=== PATIENT | male | born 1965 | race Caucasian/White ===

== ENCOUNTER 2016-05-23 11:28 | Inpatient (IN) | payer MEDICAID ==
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
[2016-05-23] MEDS ORDERED: NS 1,000 ML IV ONE ×2 (13:35)
[2016-05-23 13:46] LABS: % IMMATURE GRANULYOCYTES 0.8 % (0.0-1.1); ABSOLUTE IMMATURE GRANULOCYTES 0.07 10^3/uL (0.00-0.10); ADD DIFF? NO; ADD MORPH? NO; ADD SCAN? NO; ATYPICAL LYMPHOCYTE FLAG 0 (0-99); FRAGMENT RBC FLAG 0 (0-99); HEMOGLOBIN 14.9 g/dL (13.7-17.5); LEFT SHIFT FLG 0 (0-99); LIPEMIA HEMOLYSIS FLAG 90 (0-99); MEAN CELL HEMOGLOBIN 34.4 pg (27.9-34.1); MEAN CELL HEMOGLOBIN CONCENTR. 35.5 g/dL (32.4-36.7); MEAN PLATELET VOLUME 10.2 fL (8.7-11.7); PLATELET CLUMPS FLAG 0 (0-99); PLATELET COUNT 341 10^3/uL (150-400); RED BLOOD CELL COUNT 4.33 10^6/uL (4.40-6.38); RED CELL DISTRIBUTION WIDTH 12.9 % (11.5-15.2)
[2016-05-23 14:01] LABS: ANION GAP 17 mEq/L (8-16); CALCIUM 9.8 mg/dL (8.5-10.4); CARBON DIOXIDE 22 mEq/l (22-31); CHLORIDE 94 mEq/L (97-110); CREATININE 4.1 mg/dL (0.7-1.3); GLOMERULAR FILTRATION RATE 15; GLUCOSE 147 mg/dL (70-100); POTASSIUM 4.4 mEq/L (3.5-5.2); SODIUM 133 mEq/L (134-144)
--- NOTE | 2016-05-23 14:13 | CT ---
CT Brain (Without Contrast) May 23, 2016, 1348 hours History: Dizziness and confusion. Comparison: None relevant. Technique: Axial computed tomographic images of the brain without contrast. Dose reduction techniques were utilized. Findings: Ventricles, cisterns, and sulci are widened consistent with atrophy. No hydrocephalus, mid line shift/herniation, or epidural/subdural hematomas. No acute intraparenchymal hemorrhage or mass e ffect. Cerebrovascular atherosclerosis. Hypodensities in the white matter of bilateral cerebral hemis pheres. Bone windows demonstrate no displaced fractures. Paranasal sinuses and mastoid air cells are clear. Impressions 1. Moderate atrophy. 2. No acute hemorrhage, hydrocephalus, or mass effect. 3. Cerebrovascular atherosclerosis. 4. No definite acute infarct. 5. Moderate microvascular ischemic disease. Critical results relayed by Dr. Craft to Dr. Live May 23, 2016, 1410 hours.
[2016-05-23] MEDS ORDERED: ZOLPIDEM TARTRATE 5 MG TAB PO PRN (15:41)
[2016-05-23] MEDS ORDERED: ACETAMINOPHEN 325 MG TAB PO PRN (15:41)
[2016-05-23] MEDS ORDERED: ONDANSETRON 4 MG/2 ML VIAL IVP PRN (15:41)
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
[2016-05-23] MEDS: NS 1,000 ML IV SCH (17:23)
[2016-05-23] MEDS ORDERED: GABAPENTIN 300 MG CAP PO SCH (21:00)
[2016-05-23] MEDS: traMADol 50 MG TAB PO SCH (21:00)
[2016-05-23] MEDS: HEPARIN 5,000 UNIT/0.5 ML SYR SC SCH (21:01)
[2016-05-24] MEDS: HEPARIN 5,000 UNIT/0.5 ML SYR SC SCH ×3 (05:06→20:13)
[2016-05-24] MEDS: NS 1,000 ML IV SCH ×2 (05:40→14:50)
[2016-05-24 06:03] LABS: % IMMATURE GRANULYOCYTES 1.2 % (0.0-1.1); ABSOLUTE IMMATURE GRANULOCYTES 0.07 10^3/uL (0.00-0.10); ADD DIFF? NO; ADD MORPH? NO; ADD SCAN? NO; ATYPICAL LYMPHOCYTE FLAG 0 (0-99); FRAGMENT RBC FLAG 0 (0-99); HEMATOCRIT 34.7 % (40.0-51.0); LEFT SHIFT FLG 0 (0-99); LIPEMIA HEMOLYSIS FLAG 90 (0-99); MEAN CELL HEMOGLOBIN 34.2 pg (27.9-34.1); MEAN CELL HEMOGLOBIN CONCENTR. 34.6 g/dL (32.4-36.7); MEAN CELL VOLUME 98.9 fL (81.5-99.8); MEAN PLATELET VOLUME 10.5 fL (8.7-11.7); PLATELET CLUMPS FLAG 10 (0-99); PLATELET COUNT 218 10^3/uL (150-400); RED BLOOD CELL COUNT 3.51 10^6/uL (4.40-6.38)
[2016-05-24 06:09] LABS: ANION GAP 11 mEq/L (8-16); CARBON DIOXIDE 21 mEq/l (22-31); CHLORIDE 104 mEq/L (97-110); CREATININE 4.1 mg/dL (0.7-1.3); GLOMERULAR FILTRATION RATE 15; GLUCOSE 99 mg/dL (70-100); POTASSIUM 4.4 mEq/L (3.5-5.2); SODIUM 136 mEq/L (134-144)
[2016-05-24] MEDS ORDERED: ENOXAPARIN 40 MG/0.4 ML SYR SC SCH (09:00)
[2016-05-24] MEDS ORDERED: PROTOCOL MAGNESIUM 1 DOSE IV PRN (10:01)
[2016-05-24] MEDS ORDERED: MAGNESIUM SULF 2 GM/WATER 50 ML IV ONE (10:01)
[2016-05-24 10:27] LABS: COLOR PALE YELLOW; LEUKOCYTE ESTERASE,URINE NEGATIVE (NEGATIVE); NITRITE,URINE NEGATIVE (NEGATIVE)
[2016-05-24 10:31] LABS: MUCUS TRACE /lpf (NONE-1+)
--- NOTE | 2016-05-24 10:55 | US ---
Complete Retroperitoneal Ultrasound History: Acute renal failure. Comparison: None available. Findings: The right kidney measures 12.3 x 6.4 x 6.9 cm and the left kidney measures 12.6 x 5.4 x 7.2 cm. The kidneys have normal cortical thickness and contour without pelvicaliectasis. Renal echogenic ity is upper normal. The visible liver is diffusely echogenic. The bladder is normal. Bilateral ureteral jets are present. Prevoid bladder volume is 174 mL. Postv oid imaging was not performed. Impression: 1. Normal renal ultrasound. 2. Echogenic liver suggesting fatty infiltration.
--- NOTE | 2016-05-24 10:57 | PDGENHP ---
History and Physical - Chief Complaint GONZÁLEZ - History of Present Illness Mr. Culver is a 51 yo M with h/o DM and HTN who was admitted yesterday for dizziness and weakness and found to have Cr of 4.1. In mid March 2016, his Cr was 0.7 and prior to that had been noted to be 0.6-0.8 consistently. Pt has never before had a kidney problem. He states that he has undergone several medication changes lately, had lisinopril increased about one month ago. Two weeks ago he came back from [place] and noted having signficant swelling in his feet, was started on Lasix 20mg po three times a week, which he has been taking for the past two weeks, last dose was Friday. He states that helped his swelling. He has been having problems with constipation that have been worse in the past one week. He notes that his SBP mostly runs 140s-180s all this month, which is not bad for him. He has been feeling dizzy and disoriented this past week, showed up for what he thought was an appointment yesterday but in fact did not have one, so he came to ER due to his confusion. CT head negative. He states he is still making urine, has not had any vomiting but has had poor po intake due to his constipation. History Information - Allergies/Home Medication List Allergies/Adverse Reactions: No Known Allergies Allergy (Unverified 02/13/13 18:15) Home Medications: Lisinopril [Zestril 20 mg (*)] 20 mg PO DAILY 10/06/13 [Last Taken 05/23/16] Gabapentin [Neurontin 300 MG (*)] 600 mg PO HS 04/10/16 [Last Taken 05/22/16] Nebivolol HCl [Bystolic 5 mg (*)] 5 mg PO DAILY 04/10/16 [Last Taken 05/23/16] Furosemide [Lasix 20 MG (*)] 20 mg PO MOWEFR 05/23/16 [Last Taken 05/22/16] Linagliptin [Tradjenta] 5 mg PO DAILY 05/23/16 [Last Taken 05/23/16] metFORMIN HCL [Glucophage 500 mg (*)] 500 mg PO DAILY 05/23/16 [Last Taken 05/23] traMADol [Ultram 50 mg (*)] 100 mg PO HS 05/23/16 [Last Taken 05/22/16] I have personally reviewed and updated: medical history Past Medical History: HTN. DM. Peripheral neuropathy - Surgical History Additional surgical history: N/A - Family History Additional family history: CAD, prostate cancer, brain cancer, leukemia - Social History Smoking Status: Never smoked Review of Systems ROS: 10pt was reviewed & negative except for what was stated in HPI & below Physical Exam Temp Pulse Resp BP Pulse Ox 36.4 C 82 18 145/96 H 96 05/24/16 08:00 05/24/16 08:00 05/24/16 08:00 05/24/16 08:00 05/24/16 08:00 O2 (L/minute) 0 Constitutional: no apparent distress, appears nourished, not in pain, obese Eyes: PERRL, anicteric sclera, EOMI Ears, Nose, Mouth, Throat: moist mucous membranes, no oral mucosal ulcers Cardiovascular: regular rate and rhythym, no murmur, rub, or gallop, No edema Peripheral Pulses: 2+: dorsalis-pedis (R), dorsalis-pedis (L) Respiratory: no respiratory distress, no rales or rhonchi, clear to auscultation Gastrointestinal: normoactive bowel sounds, soft, non-tender abdomen Skin: warm, No rash Musculoskeletal: full muscle strength, no joint effusions Neurologic: AAOx3, CN II-XII Intact, No asterixes Psychiatric: interacting appropriately, not encephalopathic Lab Data & Imaging Review 05/24/16 05:28 05/24/16 05:28 WBC 5.97 10^3/uL (3.80-9.50) 05/24/16 05:28 RBC 3.51 10^6/uL (4.40-6.38) L 05/24/16 05:28 Hgb 12.0 g/dL (13.7-17.5) L 05/24/16 05:28 POC Hgb 16.0 gm/dL (14.5-17.3) 05/23/16 13:26 Hct 34.7 % (40.0-51.0) L 05/24/16 05:28 POC Hct 47 % (42.8-50.6) 05/23/16 13:26 MCV 98.9 fL (81.5-99.8) 05/24/16 05:28 MCH 34.2 pg (27.9-34.1) H 05/24/16 05:28 MCHC 34.6 g/dL (32.4-36.7) 05/24/16 05:28 RDW 13.0 % (11.5-15.2) 05/24/16 05:28 Plt Count 218 10^3/uL (150-400) D 05/24/16 05:28 MPV 10.5 fL (8.7-11.7) 05/24/16 05:28 Neut % (Auto) 66.6 % (39.3-74.2) 05/24/16 05:28 Lymph % (Auto) 17.8 % (15.0-45.0) 05/24/16 05:28 [place] % (Auto) 11.1 % (4.5-13.0) 05/24/16 05:28 Eos % (Auto) 2.3 % (0.6-7.6) 05/24/16 05:28 Baso % (Auto) 1.0 % (0.3-1.7) 05/24/16 05:28 Nucleat RBC Rel Count 0.0 % (0.0-0.2) 05/24/16 05:28 Absolute Neuts (auto) 3.98 10^3/uL (1.70-6.50) 05/24/16 05:28 Absolute Lymphs (auto) 1.06 10^3/uL (1.00-3.00) 05/24/16 05:28 Absolute Monos (auto) 0.66 10^3/uL (0.30-0.80) 05/24/16 05:28 Absolute Eos (auto) 0.14 10^3/uL (0.03-0.40) 05/24/16 05:28 Absolute Basos (auto) 0.06 10^3/uL (0.02-0.10) 05/24/16 05:28 Absolute Nucleated RBC 0.00 10^3/uL (0-0.01) 05/24/16 05:28 Immature Gran % 1.2 % (0.0-1.1) H 05/24/16 05:28 Immature Gran # 0.07 10^3/uL (0.00-0.10) 05/24/16 05:28 POC Sodium 135 mEq/L (134-144) 05/23/16 13:26 Sodium 136 mEq/L (134-144) 05/24/16 05:28 POC Potassium 4.0 mEq/L (3.3-5.0) 05/23/16 13:26 Potassium 4.4 mEq/L (3.5-5.2) 05/24/16 05:28 POC Chloride 95 mEq/L (96-108) L 05/23/16 13:26 Chloride 104 mEq/L (97-110) D 05/24/16 05:28 Carbon Dioxide 21 mEq/l (22-31) L 05/24/16 05:28 Anion Gap 11 mEq/L (8-16) 05/24/16 05:28 POC BUN 32 mg/dL (7-23) H 05/23/16 13:26 BUN 31 mg/dL (7-23) H 05/24/16 05:28 Creatinine 4.1 mg/dL (0.7-1.3) H 05/24/16 05:28 POC Creatinine 4.2 mg/dL (0.8-1.5) H 05/23/16 13:26 Estimated GFR 15 05/24/16 05:28 Glucose 99 mg/dL (70-100) 05/24/16 05:28 POC Glucose 138 mg/dL (70-100) H 05/23/16 20:58 Calcium 8.0 mg/dL (8.5-10.4) L D 05/24/16 05:28 Magnesium 1.0 mg/dL (1.6-2.3) L 05/24/16 05:28 TSH 1.680 uIU/mL (0.465-4.680) 05/24/16 05:28 Urine Color PALE YELLOW 05/24/16 09:55 Urine Appearance CLEAR 05/24/16 09:55 Urine pH 5.0 (5.0-7.5) 05/24/16 09:55 Ur Specific [place] 1.004 (1.002-1.030) 05/24/16 09:55 Urine Protein NEGATIVE (NEGATIVE) 05/24/16 09:55 Urine Ketones NEGATIVE (NEGATIVE) 05/24/16 09:55 Urine Blood 1+ (NEGATIVE) H 05/24/16 09:55 Urine Nitrate NEGATIVE (NEGATIVE) 05/24/16 09:55 Urine Bilirubin NEGATIVE (NEGATIVE) 05/24/16 09:55 Urine Urobilinogen NEGATIVE EU (0.2-1.0) 05/24/16 09:55 Ur Leukocyte Esterase NEGATIVE (NEGATIVE) 05/24/16 09:55 Urine RBC 1-3 /hpf (0-3) 05/24/16 09:55 Urine WBC 1-3 /hpf (0-3) 05/24/16 09:55 Ur Epithelial Cells NONE SEEN /lpf (NONE-1+) 05/24/16 09:55 Urine Mucus TRACE /lpf (NONE-1+) 05/24/16 09:55 Urine Glucose 1+ (NEGATIVE) H 05/24/16 09:55 Assessment & Plan Assessment: Assessment/Plan: GONZÁLEZ: Pt with baseline Cr of 0.7, now up to 4.1, remains stable in the past 24 hours with fluids. Likely has prerenal injury vs ATN given his recent history with taking Lasix, higher dose lisinopril, poor po intake, and lower BP for him. - No emergent need for HD at this time. - Continue IVFs. - Continue to hold BP meds, including lisinopril and Lasix. - Agree with checking urine lytes, urine creatinine, and renal US. - Will continue to monitor renal parameters. - Will cut down dose of gabapentin to be dosed renally. - Avoid morphine, NSAIDs, contrast, aminoglycosides, ACEI/ARBs, and other nephrotoxins. Hypertension: pt normally runs high, around 140-180 systolic, currently running 100-120s. - Hold BP meds. - Continue IVFs. Hypomagnesemia: severe, Mag is 1.0. Could be from diuretic use. - Hold diuretics. - Agree with repleting. - Will check a 24 hr urine magnesium. Thank you for the interesting consult. Nephrology will continue to follow, please call if you have any additional questions or concerns.
--- NOTE | 2016-05-24 16:26 | HOSPPROG ---
Hospitalist Progress Note Assessment/Plan: Acute renal failure - No improvement overnight after IVF's, Cr still 4.1. FeNa 10.5, suggesting ATN. Normal renal u/s. -Cont to hold Lasix, Lisinopril, Metformin. -Continue gentle volume repletion. -Appreciate Nephrology input Hypomagnesemia - replace, follow, lyte protocol. Gait instability - PT/OT planned DVT PPLX - ANA Subjective: Pt feels better this afternoon. Dizziness improved. Had some tingling in his hands, also improved. No N/V. No fevers. Objective: Vital Signs Temp Pulse Resp BP Pulse Ox 36.4 C 81 18 131/93 H 95 05/24/16 15:11 05/24/16 15:11 05/24/16 15:11 05/24/16 15:11 05/24/16 15:11 Laboratory Results 05/24/16 05:28 05/24/16 05:28 05/23/16 05/24/16 05/25/16 05:59 05:59 05:59 Intake Total 2400 450 Output Total 475 400 Balance 1925 50 - Physical Exam Constitutional: no apparent distress Eyes: PERRL Ears, Nose, Mouth, Throat: moist mucous membranes Cardiovascular: regular rate and rhythym Respiratory: no respiratory distress Gastrointestinal: normoactive bowel sounds, soft, non-tender abdomen Skin: warm Neurologic: AAOx3 Psychiatric: interacting appropriately ICD10 Worksheet Patient Problems: Problems Problem Status Diagnosed Acute renal failure Acute Dizziness Acute
[2016-05-24] MEDS: POLYETHYLENE GLYCOL 3350 17 GM PKT PO PRN (16:32)
[2016-05-24] MEDS: GABAPENTIN 100 MG CAP PO SCH (20:12)
[2016-05-24] MEDS: traMADol 50 MG TAB PO SCH (20:12)
[2016-05-25 05:22] LABS: ANION GAP 13 mEq/L (8-16); CALCIUM 8.2 mg/dL (8.5-10.4); CARBON DIOXIDE 18 mEq/l (22-31); CHLORIDE 108 mEq/L (97-110); CREATININE 3.6 mg/dL (0.7-1.3); GLOMERULAR FILTRATION RATE 18; GLUCOSE 114 mg/dL (70-100); MAGNESIUM 1.3 mg/dL (1.6-2.3); POTASSIUM 4.1 mEq/L (3.5-5.2); SODIUM 139 mEq/L (134-144)
[2016-05-25] MEDS: HEPARIN 5,000 UNIT/0.5 ML SYR SC SCH ×3 (07:24→21:12)
--- NOTE | 2016-05-25 08:36 | SOAPPROG ---
SOAP Progress Note Assessment/Plan: Assessment: 1. GONZÁLEZ This appears to be hemodynamic. UA, US ok. Holding ACEI, continuing NS. Cr improving. 2. Hypomagnesemia I suspect this is due to poor po intake and loop diuretic. 24 hr urine won't be helpful in the midst of treating. Will replace Mg and hold collection for now. 3. Anorexia/Constipation Pt states he stopped eating because of issues of constipation. I suspect latter is a primary issue, although hypomagnesemia might be complicating. Will check KUB. Will treat based on findings. GI eval may be warranted. 4. Anemia Will check iron stores. 5. Prior history of edema None now. I am not sure of physiologic reasons for him to have edema. May need further investigation Plan: 05/25/16 08:32 Subjective: Appears anxious, feels obstipated Objective: Vital Signs Temp Pulse Resp BP Pulse Ox 36.7 C 89 12 114/80 94 05/25/16 04:00 05/25/16 04:00 05/25/16 04:00 05/25/16 04:00 05/25/16 04:00 Laboratory Results 05/24/16 05:28 05/25/16 04:55 05/24/16 05/25/16 05/26/16 05:59 05:59 05:59 Intake Total 2400 1750 Output Total 194 2975 Balance 1925 -1225 Physical Exam - Physical Exam General Appearance: no apparent distress, anxiety Respiratory: lungs clear Cardiac/Chest: regular rate, rhythm Extremities: normal inspection Neuro/Psych: oriented x 3 ICD10 Worksheet Patient Problems: Problems Problem Status Diagnosed Acute renal failure Acute Dizziness Acute
[2016-05-25] MEDS ORDERED: MAGNESIUM SULF 2 GM/WATER 50 ML IV ONE (08:37)
[2016-05-25 09:16] LABS: % SATURATION 30 % (20-55); TOTAL IRON BINDING CAPACITY 242 ug/dL (260-490)
--- NOTE | 2016-05-25 10:12 | DX ---
Single View Abdomen May 25, 2016 at 0944 Hours History: Abdominal distention. Constipation. Findings: Scattered gas and stool in the ascending colon. Scattered gas in the transverse and descend ing colon without evidence of constipation or fecal impaction. No small bowel distention. Lung bases are clear. Degenerative osteophytes in the lumbar spine. Impression: No evidence of bowel obstruction or constipation.
--- NOTE | 2016-05-25 11:37 | HOSPPROG ---
Hospitalist Progress Note Assessment/Plan: Acute renal failure - Some improvement today, Cr down to 3.6 to 4.1. FeNa 10.5 , suggesting possibly ATN. Normal renal u/s. -Cont to hold Lasix, Lisinopril, Metformin. -Continue gentle volume repletion. -Appreciate Nephrology input Hypomagnesemia - replace, follow, lyte protocol. Metabolic acidosis in setting of ARF Constipation - improved with bowel regimen, KUB pending Edema - Has been taking Lasix for this, which is held in setting of ARF. No proteinuria on ua. Echo done recently at [facility]. Query venous stasis. Gait instability - PT/OT planned DVT PPLX - ANA Full code Dispo - cont inpt Objective: Vital Signs Temp Pulse Resp BP Pulse Ox 36.5 C 92 18 110/86 H 96 05/25/16 11:24 05/25/16 11:24 05/25/16 11:24 05/25/16 11:24 05/25/16 11:24 Laboratory Results 05/24/16 05:28 05/25/16 04:55 05/24/16 05/25/16 05/26/16 05:59 05:59 05:59 Intake Total 2400 1750 360 Output Total 097 3437 700 Balance 9075 -8245 -471 ICD10 Worksheet Patient Problems: Problems Problem Status Diagnosed Acute renal failure Acute Dizziness Acute
[2016-05-25] MEDS: DOCUSATE SODIUM 100 MG CAP PO SCH ×2 (12:37→22:08)
[2016-05-25] MEDS: SENNOSIDES 1 TAB PO SCH ×2 (12:37→22:08)
[2016-05-25] MEDS: NS 1,000 ML IV SCH (15:01)
[2016-05-25] MEDS: traMADol 50 MG TAB PO SCH (21:10)
[2016-05-25] MEDS: GABAPENTIN 100 MG CAP PO SCH (21:11)
[2016-05-26 00:43] LABS: RANDOM URINE MAGNESIUM 7.9 mg/dL
[2016-05-26] MEDS: SENNOSIDES 1 TAB PO SCH ×3 (01:06→21:14)
[2016-05-26] MEDS: DOCUSATE SODIUM 100 MG CAP PO SCH ×3 (01:06→21:14)
[2016-05-26] MEDS: NS 1,000 ML IV SCH ×2 (04:25→21:20)
[2016-05-26 05:36] LABS: ALBUMIN 3.3 g/dL (3.5-5.0); ANION GAP 14 mEq/L (8-16); CALCIUM 8.3 mg/dL (8.5-10.4); CARBON DIOXIDE 19 mEq/l (22-31); CHLORIDE 109 mEq/L (97-110); CREATININE 2.1 mg/dL (0.7-1.3); GLOMERULAR FILTRATION RATE 33; GLUCOSE 110 mg/dL (70-100); MAGNESIUM 1.2 mg/dL (1.6-2.3); POTASSIUM 3.8 mEq/L (3.5-5.2); SODIUM 142 mEq/L (134-144)
[2016-05-26] MEDS: HEPARIN 5,000 UNIT/0.5 ML SYR SC SCH ×3 (05:38→21:14)
[2016-05-26] MEDS ORDERED: MAGNESIUM SULF 2 GM/WATER 50 ML IV ONE ×2 (08:38→10:21)
[2016-05-26] MEDS: NEBIVOLOL HCL 5 MG TAB PO SCH (10:45)
--- NOTE | 2016-05-26 10:55 | SOAPPROG ---
SOAP Progress Note Assessment/Plan: Assessment: 1. GONZÁLEZ Hemodynamic in nature. Improving. 2. Hypomagnesemia Likely due to poor intake and loop diuretic. Replacing, coming up slowly. Replace again today, and send home on oral Mag with close follow up. 3. Anorexia/Constipation Pt states he stopped eating because of issues of constipation. Abd film really doesn't support this. He has anemia but this is not iron deficiency. He has had weight loss. He needs Abd/Pelvic CT when Cr better. Subjective: Wants to go home Objective: Vital Signs Temp Pulse Resp BP Pulse Ox 36.6 C 95 16 146/97 H 93 05/26/16 08:00 05/26/16 08:00 05/26/16 08:00 05/26/16 08:56 05/26/16 08:00 Laboratory Results 05/24/16 05:28 05/26/16 04:55 05/25/16 05/26/16 05/27/16 05:59 05:59 05:59 Intake Total 1750 1060 Output Total 2975 1999 Balance -1225 -940 Physical Exam - Physical Exam General Appearance: no apparent distress Respiratory: normal breath sounds Cardiac/Chest: regular rate, rhythm Abdomen: soft Extremities: normal inspection Neuro/Psych: oriented x 3, depressed affect ICD10 Worksheet Patient Problems: Problems Problem Status Diagnosed Acute renal failure Acute Dizziness Acute
--- NOTE | 2016-05-26 14:59 | US ---
Bilateral Lower Extremity Venous Duplex Doppler Studies Clinical Indications: 51-year-old male with edema of unclear etiology. Rule out DVT. Technique: A high-frequency transducer was used for compression imaging and Doppler study of the alessandra p veins of both legs from the upper calves to the groins. Pulsed Doppler and color Doppler were utili zed, along with various maneuvers to assess flow in the deep veins. Comparison Study: Right lower extremity venous Doppler ultrasound, dated December 06, 2015, reported as n egative. Findings: Right Leg: The deep veins of the groin, thigh, knee, and upper calf are well-displayed, and are norm ally compressible. Doppler flow patterns are unremarkable. There is no evidence of deep venous thro mbosis. The greater saphenous vein is patent, and the popliteal fossa is unremarkable. There is some subcutaneous edema present. Left Leg: The deep veins of the groin, thigh, knee, and upper calf are well-displayed, and are nithin lly compressible. Doppler flow patterns are unremarkable. There is no evidence of deep venous throm bosis. There is normal compression of the greater saphenous vein, without superficial thrombosis. The popliteal fossa is unremarkable. There is some subcutaneous edema present. Impression: Normal bilateral lower extremity venous Doppler studies.
--- NOTE | 2016-05-26 16:01 | HOSPPROG ---
Hospitalist Progress Note Assessment/Plan: * ARF - baseline creatinine normal -continue IVF, holding lasix, lisinopril, metformin * Hypomag -replete -discharge with PO mag * Edema -US negative for DVT * Abd pain with unintentional weight loss -CT a/p when creatinine improved -UTD on colonoscopy (3 years ago - polyps) * DM II -Januvia -holding metformin Subjective: No new complaints. Objective: Vital Signs Temp Pulse Resp BP Pulse Ox 36.6 C 92 16 142/108 H 98 05/26/16 12:00 05/26/16 12:00 05/26/16 12:00 05/26/16 12:00 05/26/16 12:00 Laboratory Results 05/24/16 05:28 05/26/16 04:55 05/25/16 05/26/16 05/27/16 05:59 05:59 05:59 Intake Total 1750 1060 Output Total 2975 2000 Balance -1225 -940 d/w Dr. Jaimes - best to keep as inpatient. Poor PO intake due to abd complaints - still don't know what is going on here US bilateral legs - no DVT - Physical Exam Constitutional: no apparent distress, appears nourished, not in pain Cardiovascular: regular rate and rhythym, no murmur, rub, or gallop, edema (1+) Respiratory: no respiratory distress, no rales or rhonchi, clear to auscultation Gastrointestinal: normoactive bowel sounds, soft, non-tender abdomen, no palpable masses Skin: no rashes or abrasions, no fluctuance, no induration Neurologic: AAOx3, sensation intact bilaterally Psychiatric: interacting appropriately, not anxious, not encephalopathic, thought process linear ICD10 Worksheet Patient Problems: Problems Problem Status Diagnosed Acute renal failure Acute Dizziness Acute
[2016-05-26] MEDS: GABAPENTIN 100 MG CAP PO SCH (21:14)
[2016-05-26] MEDS: traMADol 50 MG TAB PO SCH (21:15)
[2016-05-27 05:06] VITALS: RESP 18
[2016-05-27 05:32] LABS: % IMMATURE GRANULYOCYTES 0.5 % (0.0-1.1); ABSOLUTE IMMATURE GRANULOCYTES 0.04 10^3/uL (0.00-0.10); ADD DIFF? NO; ADD MORPH? NO; ADD SCAN? NO; ATYPICAL LYMPHOCYTE FLAG 0 (0-99); FRAGMENT RBC FLAG 0 (0-99); HEMATOCRIT 33.4 % (40.0-51.0); HEMOGLOBIN 11.8 g/dL (13.7-17.5); LEFT SHIFT FLG 0 (0-99); LIPEMIA HEMOLYSIS FLAG 90 (0-99); MEAN CELL HEMOGLOBIN 34.2 pg (27.9-34.1); MEAN CELL HEMOGLOBIN CONCENTR. 35.3 g/dL (32.4-36.7); MEAN CELL VOLUME 96.8 fL (81.5-99.8); PLATELET CLUMPS FLAG 0 (0-99); PLATELET COUNT 214 10^3/uL (150-400); RED BLOOD CELL COUNT 3.45 10^6/uL (4.40-6.38)
[2016-05-27 05:43] LABS: ALANINE AMINOTRANSFERASE 48 IU/L (21-72); ALBUMIN 3.3 g/dL (3.5-5.0); ALKALINE PHOSPHATASE 74 IU/L (38-126); ANION GAP 13 mEq/L (8-16); ASPARTATE AMINOTRANSFERASE 36 IU/L (17-59); BILIRUBIN,TOTAL 1.2 mg/dL (0.1-1.4); BILIRUBIN-CONJUGATED 0.5 mg/dL (0.0-0.5); BILIRUBIN-UNCONJUGATED 0.7 mg/dL (0.0-1.1); CALCIUM 8.3 mg/dL (8.5-10.4); CARBON DIOXIDE 21 mEq/l (22-31); CHLORIDE 108 mEq/L (97-110); CREATININE 1.3 mg/dL (0.7-1.3); GLOMERULAR FILTRATION RATE 58; GLUCOSE 121 mg/dL (70-100); MAGNESIUM 1.3 mg/dL (1.6-2.3); POTASSIUM 3.7 mEq/L (3.5-5.2); SODIUM 142 mEq/L (134-144); TOTAL PROTEIN 5.7 g/dL (6.3-8.2)
[2016-05-27] MEDS: HEPARIN 5,000 UNIT/0.5 ML SYR SC SCH ×2 (05:46→14:48)
[2016-05-27] MEDS: POLYETHYLENE GLYCOL 3350 17 GM PKT PO PRN (07:46)
[2016-05-27] MEDS: NEBIVOLOL HCL 5 MG TAB PO SCH (07:47)
[2016-05-27] MEDS: SENNOSIDES 1 TAB PO SCH (07:48)
[2016-05-27] MEDS: DOCUSATE SODIUM 100 MG CAP PO SCH (07:48)
[2016-05-27] MEDS ORDERED: MAGNESIUM CL 64 MG TAB.SR PO SCH (09:30)
[2016-05-27] MEDS ORDERED: MAGNESIUM SULF 2 GM/WATER 50 ML IV ONE (10:18)
--- NOTE | 2016-05-27 10:21 | SOAPPROG ---
SOAP Progress Note Assessment/Plan: Assessment: 1. GONZÁLEZ Hemodynamic in nature. Improved. 2. Hypomagnesemia Give additional dose today. 3. Anorexia/Constipation Pt has anemia, change in bowel habits, LE edema. At this point, agree with imaging. He should tolerate contrast. Will give some additional IVF around the time of his study. 4. HTN Would wait and treat further as outpatient. Would use CCB along with BB. His PCP can adjust this. 05/27/16 10:18 Subjective: Doing ok Objective: Vital Signs Temp Pulse Resp BP Pulse Ox 36.3 C 93 18 141/107 H 95 05/27/16 07:40 05/27/16 07:40 05/27/16 07:40 05/27/16 07:40 05/27/16 07:40 Laboratory Results 05/27/16 05:03 05/27/16 05:03 05/26/16 05/27/16 05/28/16 05:59 05:59 05:59 Intake Total 1060 950 Output Total 2000 400 Balance -940 550 Physical Exam - Physical Exam General Appearance: no apparent distress Respiratory: lungs clear Cardiac/Chest: regular rate, rhythm Extremities: pedal edema Neuro/Psych: oriented x 3 ICD10 Worksheet Patient Problems: Problems Problem Status Diagnosed Acute renal failure Acute Dizziness Acute
[2016-05-27] MEDS ORDERED: IOPAMIDOL (ISOVUE-300) 100 ML BTL IV ONE (10:25)
[2016-05-27] MEDS ORDERED: NS 1,000 ML IV SCH (10:30)
--- NOTE | 2016-05-27 11:42 | CT ---
CT Abdomen and Pelvis With IV Contrast History: 40-pound weight loss. Poor p.o. intake. Diabetes. Technique: 5 mm helical images were obtained of the abdomen and pelvis from the level of the diaphrag m through the symphysis pubis. This was done post intravenous contrast with 75 mL Isovue 300 contrast . Multiplanar reformation was performed. Radiation dose reduction technique was utilized. Findings: Abdomen: There is decreased attenuation of the liver but no focal liver lesion. There appears to be d ebris and gallstones within the gallbladder. No evidence for intrahepatic or extrahepatic biliary minal renay dilatation. There is a 12 mm oval density in the lumen of the duodenum just below the ampulla. No evidence for small bowel obstruction. Spleen is unremarkable. Both adrenal glands are normal in size and appearance. Both kidneys enhance normally without evidence for mass or hydronephrosis. No eviden ce for aneurysmal dilatation of the abdominal aorta. Pelvis: No evidence for diverticulitis. No significant free fluid in the pelvis. No evidence for blad monico calculus. Degenerative change is seen in the lumbar spine. Degenerative change is also seen in lydia th hips. Impression: 1. Debris and cholelithiasis in the gallbladder. No evidence for intrahepatic or extrahepatic biliary ductal dilatation or dilatation of the common bile duct. Just below the ampulla, there is a 12 mm ov al density in the lumen of the duodenum which could represent a stone or radiopaque pill. 2. Fatty infiltration of the liver. 3. Degenerative change lumbar spine.
[2016-05-27 12:00] VITALS: BP 133/95; PULSE 88; TEMP 97.9; O2SAT 97
[2016-05-27] MEDS ORDERED: LORazepam 0.5 MG TAB PO PRN (13:53)
--- NOTE | 2016-05-27 17:28 | GDS ---
[f rep st] DISCHARGE SUMMARY DISCHARGE DIAGNOSES: 1. Acute renal failure due to hypovolemia and ongoing administration of Lasix and lisinopril. 2. 40 pound unintentional weight loss with early satiety and abnormal CT scan of the duodenum. 3. Hypomagnesemia. 4. Diabetes type 2. HISTORY: The patient is a 51-year-old male who developed early satiety a few months ago and has lost over 30 pounds. He had been taking lisinopril for hypertension and Lasix for leg edema and continue d them despite his decreasing p.o. intake. He presented to the hospital and was found to have creati nine 4.1. He was seen here in consultation with Nephrology. It was clear this was prerenal in natur e, and his creatinine did return to baseline normal state with IV fluids and holding these medication s. We did address this weight loss and decreased p.o. intake as there was some concern without further e valuation he will again become hypovolemic and return to renal failure. Once his creatinine improved , we obtained CT scan of the abdomen and pelvis. This revealed a 12 mm oval density in the lumen of the duodenum. It was unclear whether this could be a gallstone versus a radiopaque pill. EGD was re commended for further evaluation. The patient requested this be done in a short-term basis as an out patient. I spoke with Dr. Wolfe, who will make arrangements for him to return to outpatient endoscop y center for EGD later this week. He is relatively up to date on colonoscopy, having had one approxi mately 3 years ago showing only polyps. I, therefore, doubt he has an underlying colon cancer. Given his borderline renal function, I did discontinue his metformin. This may also be contributing to his GI side effects. We treated him here with Januvia alone, and he had adequate blood glucose co ntrol. He needs close outpatient followup with primary care. DISCHARGE MEDICATIONS: Please see computer record for full detailed list. New medications: Magnesi um chloride 64 mg p.o. b.i.d. for persistently low magnesium despite multiple doses of IV mag adminis tered as an inpatient. ADDITIONAL DISCHARGE INSTRUCTIONS: 1. Stop lisinopril, Lasix and metformin. 2. Follow up with primary care regarding blood pressure and diabetes management. 3. Recheck magnesium level in blood work later this week. 4. Outpatient EGD later this week. Dr. Wolfe's office will contact you to schedule. Greater than 30 minutes' time were spent arranging his discharge. Patient was seen and examined by wero early on day of discharge. /[id number]/MODL
== END 2016-05-27 15:15 | disposition home or self-care (01) | DRG 684 ==
LOC: F3E 16:06
PROVIDERS: ADMIT Internal Medicine; ATTEND Internal Medicine
DX: N17.9 Acute kidney failure, unspecified (principal); E86.1 Hypovolemia; E86.0 Dehydration; E83.42 Hypomagnesemia; E11.9 Type 2 diabetes mellitus without complications; I10 Essential (primary) hypertension; G89.29 Other chronic pain; T46.4X5A Adverse effect of angiotensin-converting-enzyme inhibitors, initial encounter; R26.89 Other abnormalities of gait and mobility; K59.00 Constipation, unspecified; Z79.84 Long term (current) use of oral hypoglycemic drugs; Z80.42 Family history of malignant neoplasm of prostate; Z80.8 Family history of malignant neoplasm of other organs or systems; Z80.6 Family history of leukemia
CPT/HCPCS: 82947-QW; 92507-GN; 92523-GN; 97001-GP; 97003-GO; 97116-GP; 97530-GO; 97535-GO; Q9967

== ENCOUNTER → 2016-06-12 | Outpatient (CLI) | payer MEDICAID ==
--- NOTE | 2016-06-12 18:36 | DX ---
Abdomen, 2 Views Clinical indication: Follow up abnormal finding on CT scan. Dense material noted in the duodenum. Comparison: May 27, 2016. FINDINGS: The dense intraluminal material in the duodenum has resolved. This likely represents a pill . Small bowel and colon are unremarkable. Basal lungs are clear. Bones exhibit moderate degenerative changes. IMPRESSION: 1. Moderate DJD. 2. No evidence of radiopaque foreign body.
== END ==
LOC: CIMAGING 10:11
PROVIDERS: ATTEND Internal Medicine
DX: R93.3 Abnormal findings on diagnostic imaging of other parts of digestive tract (principal); M19.91 Primary osteoarthritis, unspecified site
CPT/HCPCS: 74020-PO; 82248-PO; 83735-PO; 84100-PO

== ENCOUNTER → 2016-07-01 | Outpatient (CLI) | payer MEDICAID ==
--- NOTE | 2016-07-01 13:50 | DX ---
PA and lateral chest - July 01, 2016 Reason for examination: Abnormal weight loss in a 51-year-old male; ICD-10 R63.4; comparison to the p rior study of April 10, 2016. Findings: Minimal basilar opacities are stable, possibly reflecting scarring. Hilar and mediastinal c ontours are normal with no adenopathy identified. The lungs are otherwise clear. Heart size and pulmo nary vascularity are normal. Degenerative changes are seen involving the right shoulder were there ma y be loose bodies present. Impression: Chest negative for acute abnormality.
== END ==
LOC: FIMAGING 11:09
PROVIDERS: ATTEND Internal Medicine
DX: R63.4 Abnormal weight loss (principal); I10 Essential (primary) hypertension; E83.42 Hypomagnesemia

== ENCOUNTER 2016-10-21 18:44 | Emergency (ER) | payer MEDICAID ==
[2016-10-21 18:51] VITALS: RESP 18; TEMP 97.9
[2016-10-21] MEDS ORDERED: NS 1,000 ML IV ONE ×2 (19:04→19:17)
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
[2016-10-21 19:24] LABS: % IMMATURE GRANULYOCYTES 0.5 % (0.0-1.1); ABSOLUTE IMMATURE GRANULOCYTES 0.03 10^3/uL (0.00-0.10); ADD DIFF? NO; ADD MORPH? NO; ADD SCAN? NO; ATYPICAL LYMPHOCYTE FLAG 0 (0-99); FRAGMENT RBC FLAG 0 (0-99); HEMATOCRIT 42.2 % (40.0-51.0); HEMOGLOBIN 15.3 g/dL (13.7-17.5); LEFT SHIFT FLG 0 (0-99); LIPEMIA HEMOLYSIS FLAG 90 (0-99); MEAN CELL HEMOGLOBIN CONCENTR. 36.3 g/dL (32.4-36.7); MEAN CELL VOLUME 101.9 fL (81.5-99.8); MEAN PLATELET VOLUME 9.3 fL (8.7-11.7); PLATELET CLUMPS FLAG 20 (0-99); PLATELET COUNT 202 10^3/uL (150-400); RED BLOOD CELL COUNT 4.14 10^6/uL (4.40-6.38); RED CELL DISTRIBUTION WIDTH 13.3 % (11.5-15.2)
[2016-10-21 19:57] LABS: ALANINE AMINOTRANSFERASE 63 IU/L (21-72); ALBUMIN 4.5 g/dL (3.5-5.0); ALKALINE PHOSPHATASE 74 IU/L (38-126); ANION GAP 14 mEq/L (8-16); ASPARTATE AMINOTRANSFERASE 83 IU/L (17-59); BILIRUBIN,TOTAL 1.6 mg/dL (0.1-1.4); CALCIUM 9.6 mg/dL (8.5-10.4); CARBON DIOXIDE 23 mEq/l (22-31); CHLORIDE 96 mEq/L (97-110); CREATININE 0.7 mg/dL (0.7-1.3); ETHANOL SERUM 219 mg/dL (0-10); GLOMERULAR FILTRATION RATE > 60; GLUCOSE 148 mg/dL (70-100); SODIUM 133 mEq/L (134-144); TOTAL PROTEIN 7.6 g/dL (6.3-8.2)
[2016-10-21 20:05] VITALS: BP 119/77; PULSE 89
[2016-10-21 20:46] VITALS: O2SAT 93
== END 2016-10-21 20:46 | disposition home or self-care (01) ==
DX: E11.65 Type 2 diabetes mellitus with hyperglycemia (principal); F10.120 Alcohol abuse with intoxication, uncomplicated; I10 Essential (primary) hypertension; Z79.84 Long term (current) use of oral hypoglycemic drugs
CPT/HCPCS: 82947-QW; G0480

== ENCOUNTER 2017-05-11 05:21 | Inpatient (IN) | payer MEDICAID, OTHER ==
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
[2017-05-11] MEDS ORDERED: ONDANSETRON 4 MG/2 ML VIAL ONE ×2 (05:50→11:18)
[2017-05-11] MEDS ORDERED: NS 1,000 ML IV ONE (05:54)
[2017-05-11] MEDS ORDERED: ONDANSETRON 4 MG/2 ML VIAL IVP ONE (05:56)
[2017-05-11 05:59] LABS: % IMMATURE GRANULYOCYTES 1.1 % (0.0-1.1); ABSOLUTE IMMATURE GRANULOCYTES 0.17 10^3/uL (0.00-0.10); ADD DIFF? NO; ADD MORPH? NO; ADD SCAN? NO; ATYPICAL LYMPHOCYTE FLAG 0 (0-99); FRAGMENT RBC FLAG 0 (0-99); HEMATOCRIT 48.2 % (40.0-51.0); HEMOGLOBIN 16.9 g/dL (13.7-17.5); LEFT SHIFT FLG 10 (0-99); LIPEMIA HEMOLYSIS FLAG 90 (0-99); MEAN CELL HEMOGLOBIN 34.1 pg (27.9-34.1); MEAN CELL HEMOGLOBIN CONCENTR. 35.1 g/dL (32.4-36.7); MEAN CELL VOLUME 97.4 fL (81.5-99.8); MEAN PLATELET VOLUME 9.8 fL (8.7-11.7); PLATELET CLUMPS FLAG 0 (0-99); PLATELET COUNT 115 10^3/uL (150-400); RED BLOOD CELL COUNT 4.95 10^6/uL (4.40-6.38); RED CELL DISTRIBUTION WIDTH 12.2 % (11.5-15.2)
[2017-05-11 06:11] LABS: ALANINE AMINOTRANSFERASE 51 IU/L (21-72); ALBUMIN 4.4 g/dL (3.5-5.0); ALKALINE PHOSPHATASE 86 IU/L (38-126); ANION GAP 19 mEq/L (8-16); ASPARTATE AMINOTRANSFERASE 51 IU/L (17-59); BILIRUBIN,TOTAL 4.8 mg/dL (0.1-1.4); BILIRUBIN-CONJUGATED 1.3 mg/dL (0.0-0.5); BILIRUBIN-UNCONJUGATED 3.5 mg/dL (0.0-1.1); CALCIUM 9.7 mg/dL (8.5-10.4); CARBON DIOXIDE 24 mEq/l (22-31); CHLORIDE 93 mEq/L (97-110); CREATININE 0.7 mg/dL (0.7-1.3); GLOMERULAR FILTRATION RATE > 60; GLUCOSE 205 mg/dL (70-100); POTASSIUM 4.1 mEq/L (3.5-5.2); SODIUM 136 mEq/L (134-144); TOTAL PROTEIN 7.5 g/dL (6.3-8.2)
[2017-05-11] MEDS ORDERED: FAMOTIDINE 20 MG/NACL 50 ML IV ONE (06:23)
[2017-05-11] MEDS ORDERED: ERTAPENEM 1 GM VIAL IVP ONE (07:09)
[2017-05-11] MEDS ORDERED: ONDANSETRON 4 MG/2 ML VIAL IVP PRN ×3 (08:40→13:48)
--- NOTE | 2017-05-11 08:47 | SOAPPROG ---
SOAP Progress Note Assessment/Plan: Assessment: 52 male diabetic with ruq pain < 12 hrs us shows acute orion with small stones bili unconjugated elevated tender ruq/ nonicteric/ afebrile risks and options fully discussed Plan:lap orion/ IM consult for diabetes management 05/11/17 08:45 Objective: Vital Signs Temp Pulse Resp BP Pulse Ox 37 C 75 18 105/72 95 05/11/17 08:36 05/11/17 08:36 05/11/17 08:36 05/11/17 08:36 05/11/17 08:36 05/10/17 05/11/17 05/12/17 05:59 05:59 05:59 Intake Total 1050 Balance 1050 ICD10 Worksheet Patient Problems: Problems Problem Status Onset Cholecystitis Acute Acute renal failure Acute Dizziness Acute
--- NOTE | 2017-05-11 08:54 | GHP ---
[f rep st] PREOP HISTORY AND PHYSICAL DATE OF ADMISSION: 05/11/2017 HISTORY OF PRESENT ILLNESS: The patient is a 52-year-old male diabetic who presents with acute right upper quadrant pain for 8 hours duration. It woke up from sleeping. He has been nauseated, but no real vomiting. Admitted at this time for a laparoscopic cholecystectomy. Ultrasound reveals stones with a thickened gallbladder wall. Ducts are not dilated, but his bilirubin is elevated, however, it is mostly unconjugated and his transaminases are normal. [place] [address]. Risks and opti ons have been fully discussed and he wishes to proceed with a laparoscopic cholecystectomy. PAST MEDICAL HISTORY: Includes a wrist surgery. No other major medical or surgical problems other t collier diabetes. ALLERGIES: None. MEDICATIONS: Invokana, metformin, Januvia, Bystolic, gabapentin. REVIEW OF SYSTEMS: No other major medical problems on a full 10-point review of systems other than t he HPI, specifically he has some diabetes and hypertension. FAMILY HISTORY: Noncontributory. PHYSICAL EXAMINATION: GENERAL: An alert, 52-year-old male who is in some discomfort. VITAL SIGNS: He is afebrile. HEAD and NECK: No icterus, adenopathy, or oral lesions. NECK: Supple. Pupils ar e normal. No thyromegaly. CHEST: Clear to auscultation and percussion. CARDIAC: Regular rhythm w ithout murmurs. ABDOMEN: Soft. He is tender in the right upper quadrant. He has some bowel sounds . He has no true peritoneal signs. No obvious hernias. GENITALIA: Normal. EXTREMITIES: Full ran ge of motion, full pulses. NEUROLOGIC: Physiologic and symmetric. PSYCHIATRIC: He is alert, orien mario and cooperative. IMPRESSION: Acute cholecystitis and probable cholelithiasis. PLAN: Admit for laparoscopic cholecystectomy and internal medicine consultation for diabetic treatme nt. /[id number]/MODL
[2017-05-11] MEDS ORDERED: ERTAPENEM 1 GM VIAL IVP SCH (09:00)
[2017-05-11] MEDS ORDERED: PROMETHAZINE HCL 25 MG/ML INJ IVP PRN (09:13)
[2017-05-11] MEDS ORDERED: DIAZEPAM 10 MG/2 ML SYR IVP ONE (09:13)
[2017-05-11] MEDS ORDERED: D50W 25 GM/50 ML SYR IVP PRN (09:15)
--- NOTE | 2017-05-11 09:24 | CPEKG ---
Heart Rate: 98 RR Interval: 612 P-R Interval: 144 QRSD Interval: 76 QT Interval: 340 QTC Interval: 435 P King: -9 QRS King: -11 T Wave King: 16 EKG Severity - BORDERLINE ECG - EKG Impression: SINUS RHYTHM EKG Impression: BORDERLINE T ABNORMALITIES, ANTERIOR LEADS Electronically Signed By: Ashly Ansari 11-May-2017 19:27:08
[2017-05-11] MEDS: GABAPENTIN 300 MG CAP PO SCH ×2 (09:28→21:54)
[2017-05-11] MEDS: NEBIVOLOL HCL 5 MG TAB PO SCH (09:28)
[2017-05-11] MEDS: LR 1,000 ML IV SCH ×4 (09:29→23:05)
--- NOTE | 2017-05-11 10:05 | GHP ---
[f rep st] HISTORY AND PHYSICAL DATE OF ADMISSION: 05/11/2017 HISTORY OF PRESENT ILLNESS: The patient is a pleasant, 52-year-old gentleman with a history of well- controlled diabetes and neuropathy who presents with right upper quadrant abdominal pain that began a bout 2 in the morning. He denies previous history of biliary colic. He has had some subjective feve r, chills, but no rigors. He had an admission here about almost a year ago where he had a lucency in the radiopaque structure i n the duodenum. He had a subsequent EGD that was unremarkable. It is conceivable this was a gallsto ne, but not clear. Again, the patient denies a history of biliary colic-like symptoms over the previ ous weeks. Regarding his exertional capacity it sounds like he is limited by neuropathy. He does not have exert ional angina, but it is not clear that he achieves 4 METs. He does not have heart failure symptoms. He has had no previous known cardiac problems. He takes an aspirin, statin, beta cuca. REVIEW OF SYSTEMS: Complete 10-point review of systems conducted. Negative except as noted in the H PI. PAST MEDICAL HISTORY: 1. Diabetes. Last hemoglobin A1c was 6.8. 2. Neuropathy. 3. Hypertension. 4. Hyperlipidemia. ALLERGIES: No known drug allergies. HOME MEDICATIONS: Aspirin, canagliflozin, Mag Oxide, metformin, Percocet, simvastatin, sitagliptin, gabapentin, nebivolol. SOCIAL HISTORY: He drinks some alcohol. He says he has cut down over the years prior. No tobacco. FAMILY HISTORY: Notable for diabetes. PHYSICAL EXAMINATION: VITAL SIGNS: Temp 36.5, blood pressure 138/105, pulse 105 now 75, breathing 2 0 times a minute. 97% on room air. GENERAL: In no acute distress. HEENT: Sclerae anicteric. Monika pharynx clear. Mucous membranes are moist. NECK: Supple without lymphadenopathy or JVD. LUNGS: C lear to auscultation bilaterally. HEART: S1, S2, not tachycardic. ABDOMEN: Soft. There is a posi tive Ortiz sign. There is no rebound or guarding. LOWER EXTREMITIES: Without edema. Calves nonte nder. SKIN: Without rash. NEUROLOGIC: Nonfocal. LABORATORY/IMAGING DATA: White count 15, hematocrit 48. Platelets are 115,000. He does have a left shift. Sodium 136, potassium 4.1, chloride 93, bicarb 24, BUN 14, creatinine 0.7, glucose 205. Tot al bilirubin is 4.8, mostly unconjugated. ALT, AST normal, alk phosphatase normal. Lipase is normal . Right upper quadrant ultrasound performed in the emergency department shows cholelithiasis with mi ld gallbladder wall thickening and positive sonographic Ortiz sign suspicious for acute cholecystiti s, fatty liver and a hypoechoic region near the gallbladder fundus. I have discussed the case with Dr. Jonathan Nagel. ASSESSMENT/PLAN: A 52-year-old gentleman acute cholecystitis. 1. Acute cholecystitis to operating room today. 2. Preoperative cardiac evaluation. The patient has an urgent indication for surgery. He probably does not achieve greater than 4 METs, but his risk factors are diabetes. I think I will perform an E KG for baseline establishment. I will continue his beta-cuca through the perioperative period. W ill restart an aspirin when available. The patient is at moderate risk for a moderate risk surgery. 3. Diabetes. Most of his medications have been held. I put him on low-dose sliding scale given his good hemoglobin A1c. 4. Neuropathy. Continue his Neurontin. 5. Hypertension. Continue his Bystolic. 6. Hiccups. The patient has fairly significant hiccups. I will give him a 1 time dose of IV Valium . 7. Nausea. He has Zofran written for. I will give him some intravenous Phenergan. 8. Prophylaxis. I recommend pharmacologic prophylaxis in the postoperative period. Will hold today and see how he does tomorrow. DISPOSITION: Inpatient status. I anticipate greater than 2 midnights required. /[id number]/MODL
[2017-05-11] MEDS: HYDROmorphONE/DILAUDID 1 MG/ML INJ IVP PRN ×6 (10:45→23:05)
[2017-05-11] MEDS ORDERED: fentaNYL 100 MCG/2 ML INJ ONE ×3 (11:00→13:35)
[2017-05-11] MEDS ORDERED: LIDOCAINE 2% 5 ML SDV ONE (11:00)
[2017-05-11] MEDS ORDERED: PROPOFOL 200 MG/20 ML VIAL ONE (11:00)
[2017-05-11] MEDS ORDERED: ROCURONIUM 50 MG/5 ML VIAL ONE (11:01)
--- NOTE | 2017-05-11 11:06 | PDANEPAE ---
ANE History of Present Illness 52 year old male w/ PMHx of HTN, HLD, DM2 (w/ neuropathy) and obesity presents with RUQ pain & nausea. To OR for lap orion. ANE Past Medical History - Cardiovascular History Hx Hypertension: Yes Hx Arrhythmias: No Hx Chest Pain: No Hx Coronary Artery / Peripheral Vascular Disease: No Hx CHF / Valvular Disease: No Hx Palpitations: No - Pulmonary History Hx COPD: No Hx Asthma/Reactive Airway Disease: No Hx Recent Upper Respiratory Infection: No Hx Oxygen in Use at Home: No Hx Sleep Apnea: No - Neurologic History Hx Cerebrovascular Accident: No Hx Seizures: No Hx Dementia: No - Endocrine History Hx Diabetes: Yes - Renal History Hx Renal Disorders: No - Liver History Hx Hepatic Disorders: No - Neurological & Psychiatric Hx Hx Neurological and Psychiatric Disorders: No - Cancer History Hx Cancer: No - Congenital Disorder History Hx Congenital Disorders: No - GI History Hx Gastrointestinal Disorders: No - Chronic Pain History Chronic Pain: Yes - Surgical History Prior Surgeries: R wrist 2008 ANE Review of Systems Review of systems is: negative Review of Systems: - Exercise capacity Exercise capacity: <4 METS ANE Patient History - Allergies Allergies/Adverse Reactions: No Known Allergies Allergy (Verified 05/11/17 05:25) - Home Medications Home medications: home medication list seen and reviewed Home Medications: Gabapentin [Neurontin 300 MG (*)] 900 mg PO BID 04/10/16 [Last Taken 05/09/17] Nebivolol HCl [Bystolic 5 mg (*)] 5 mg PO DAILY 04/10/16 [Last Taken 05/09/17] Aspirin EC [Aspirin EC 81 mg (*)] 81 mg PO DAILY 05/11/17 [Last Taken 05/09/17] Canagliflozin [Invokana] 100 mg PO DAILY 05/11/17 [Last Taken 05/09/17] Herbals/Supplements -Info Only 1 ea PO DAILY 05/11/17 [Last Taken 05/09/17] Magnesium Oxide [Magnesium Oxide 400 mg (*)] 400 mg PO BID 05/11/17 [Last Taken 05/09/17] Simvastatin 40 mg PO HS 05/11/17 [Last Taken 05/09/17] metFORMIN SR [Glucophage XR 500 mg (*)] 500 mg PO BID 05/11/17 [Last Taken 05/09] oxyCODONE/APAP 5/325 [Percocet 5/325 (*)] 1 tab PO DAILY PRN 05/11/17 [Last Taken 05/09/17] sitaGLIPtin PHOSPHATE [Januvia 100 MG (*)] 100 mg PO DAILY 05/11/17 [Last Taken 05/09/17] - NPO status NPO Status: no food or drink >8 hours NPO Since - Liquids (Date): 05/10/17 NPO Since - Liquids (Time): 23:55 NPO Since - Solids (Date): 05/10/17 NPO Since - Solids (Time): 23:55 - Anes Hx Anes Hx: no prior problems - Smoking Hx Smoking Status: Never smoked - Alcohol Use Alcohol Use: Rarely - Family Anes Hx Family Anes Hx: neg - N/A ANE Labs/Vital Signs - Labs Result Diagrams: 05/11/17 05:46 05/11/17 05:46 - Vital Signs Vital Signs: reviewed preoperatively; see RN documention for details Blood Pressure: 146/95 Heart Rate: 112 Respiratory Rate: 18 O2 Sat (%): 93 Height: 170.18 cm Weight: 95.254 kg ANE Physical Exam - Airway Neck exam: FROM, short neck Mallampati Score: Class 3 Mouth exam: normal dental/mouth exam, schneider - Pulmonary Pulmonary: no respiratory distress - Cardiovascular Cardiovascular: regular rate and rhythym - ASA Status ASA Status: III ANE Anesthesia Plan Anesthesia Plan: general endotracheal anesthesia Total IV Anesthesia: No
[2017-05-11] MEDS ORDERED: BUPIVACAINE 0.5% 30 ML SDV ONE ×2 (11:08→11:22)
[2017-05-11] MEDS ORDERED: DEXAMETHASONE 4 MG/ML VIAL ONE (11:18)
[2017-05-11] MEDS ORDERED: SUCCINYLCHOLINE CHLORIDE 200 MG/10 ML SYR IVP ONE (11:19)
[2017-05-11] MEDS ORDERED: IOPAMIDOL (ISOVUE-300) 150 ML BTL ONE (11:19)
[2017-05-11] MEDS ORDERED: ceFAZolin 1 GM/5 ML SYR ONE (11:22)
[2017-05-11] MEDS ORDERED: HEPARIN 1000 UNIT/1 ML MDV ONE (11:22)
[2017-05-11] MEDS ORDERED: SUGAMMADEX SODIUM 500 MG/5 ML VIAL IVP ONE (12:38)
[2017-05-11] MEDS ORDERED: LR 500 ML IV PRN (12:47)
[2017-05-11] MEDS ORDERED: LABETALOL HCL 5 MG/ML 20 ML MDV IVP PRN (12:47)
[2017-05-11] MEDS ORDERED: NALOXONE HCL 0.4 MG/ML INJ IVP PRN (12:47)
[2017-05-11] MEDS: fentaNYL 100 MCG/2 ML INJ IVP PRN ×2 (13:36→13:51)
--- NOTE | 2017-05-11 13:43 | POSTOPPROG ---
Post Op Note Date of Operation: 05/11/17 Surgeon: Ernesto Nagel Anesthesiologist: shahram Anesthesia: GET(General Endotracheal) Pre-op Diagnosis: acute cholecystitis Post-op Diagnosis: same + mild cirrhosis Indication: pain Procedure: lap orion, wedge liver bx Findings: infarcted gb, mild fatty liver cirhosis Inf/Abcess present in the surg proc area at time of surgery?: Yes Depth: Organ Space EBL: 50-100 Complications: 0 Drains: [place] Specimen(s): gallbladder, liver bx
[2017-05-11] MEDS ORDERED: HYDROmorphONE/DILAUDID 1 MG/ML INJ ONE (13:59)
[2017-05-11] MEDS ORDERED: LORazepam 2 MG/ML INJ ONE (14:49)
[2017-05-11] MEDS ORDERED: LORazepam 2 MG/ML INJ IVP ONE (14:58)
[2017-05-11] MEDS ORDERED: LORazepam 2 MG/ML INJ IVP PRN (14:59)
--- NOTE | 2017-05-11 15:08 | HOSPPROG ---
Hospitalist Progress Note Assessment/Plan: seen in PACU. diaphopretic, tachycardic and hypertensive acknowledges last drink was 2 days ago; heavy prior to that gall bladder noted to be black and purulent- worse than presentation suggested patient beginning alcohol withdrawal and/or sepsis 1. already received ertapenem and source of infection resolved 2. trial of ativan; place on CIWA 3. transfer to stepdown 4. bolus 2 L LR 5. discussed care w ICU nurse; notified dr kumar total of 60 min crit care on pt today Objective: Vital Signs Temp Pulse Resp BP Pulse Ox 37.2 C 99 29 H 131/105 H 97 05/11/17 14:23 05/11/17 13:25 05/11/17 14:31 05/11/17 14:31 05/11/17 14:31 05/10/17 05/11/17 05/12/17 05:59 05:59 05:59 Intake Total 2250 Output Total 225 Balance 2024 ICD10 Worksheet Patient Problems: Problems Problem Status Onset Cholecystitis Acute Acute renal failure Acute Dizziness Acute
[2017-05-11] MEDS: INSULIN LISPRO 100 UNIT/ML SC SCH ×2 (15:36→18:14)
[2017-05-11] MEDS: LORazepam 2 MG/ML INJ IVP PRN (16:44)
--- NOTE | 2017-05-11 17:05 | POSTANESTH ---
Post Anesthetic Evaluation Cardiovascular Status: Normal, Stable, Similar to Pre-Op Cond Respiratory Status: Normal, Stable, Similar to Pre-op Cond. Level of Consciousness/Mental Status: Can Participate in Eval, Alert and Oriented Pain Control: Adequate, Prn Tx Ordered Nausea/Vomiting Control: Adequate, Prn Tx Ordered Complications Possibly Related to Anesthesia: None Noted
[2017-05-11] MEDS ORDERED: ENALAPRILAT DIHYDRATE 1.25 MG/ML VIAL IVP PRN (17:19)
[2017-05-11] MEDS ORDERED: THIAMINE HCL 500 MG in NS 100 ML IV ONE (17:30)
[2017-05-11] MEDS ORDERED: HALOPERIDOL LACT 5 MG/ML INJ IVP PRN (17:34)
[2017-05-11] MEDS: THIAMINE HCL 100 MG in NS 100 ML IV SCH (18:14)
[2017-05-11 18:37] LABS: COLOR AMBER; LEUKOCYTE ESTERASE,URINE NEGATIVE (NEGATIVE); NITRITE,URINE NEGATIVE (NEGATIVE)
[2017-05-11] MEDS: METOPROLOL TARTRATE 5 MG/5 ML INJ IVP SCH (18:47)
[2017-05-11 18:50] LABS: MUCUS TRACE /lpf (NONE-1+); RBC,URINE NONE SEEN /hpf (0-3)
--- NOTE | 2017-05-11 20:18 | SOAPPROG ---
SOAP Progress Note Assessment/Plan: Assessment: 52 male diabetic with ruq pain < 12 hrs us shows acute orion with small stones bili unconjugated elevated tender ruq/ nonicteric/ afebrile risks and options fully discussed Plan:lap orion/ IM consult for diabetes management 05/11/17 08:45 05/11/17 20:15 POSTOP AFEBRILE BUT SOMEWHAT AGITATED AND MILD TACHYCARDIA/QUESTIONABLE ETOH WITHDRAWAL/SEROUS STEPHEN DRAINAGE/WOUND OKAY Objective: Vital Signs Temp Pulse Resp BP Pulse Ox 36.4 C 93 3 L 136/92 H 96 05/11/17 16:00 05/11/17 18:47 05/11/17 16:00 05/11/17 18:47 05/11/17 16:00 05/10/17 05/11/17 05/12/17 05:59 05:59 05:59 Intake Total 3243 Output Total 375 Balance 2868 ICD10 Worksheet Patient Problems: Problems Problem Status Onset Cholecystitis Acute Acute renal failure Acute Dizziness Acute
[2017-05-11] MEDS: DEXMEDETOMIDINE IN 0.9 % NACL 100 ML IV SCH (20:30)
--- NOTE | 2017-05-11 22:41 | GCON ---
[f rep st] CONSULTATION PULMONARY CRITICAL CARE CONSULTATION DATE OF CONSULTATION: 05/11/2017 REASON FOR CONSULTATION: Intensive care unit evaluation and management of confusion, alcohol withdra wal following cholecystectomy. HISTORY: The patient is a 52-year-old gentleman who was transferred to the intensive care unit dantekathy yang to confusion and alcohol withdrawal. He presented earlier today with abdominal pain. He was ta vito to the operating room by Dr. Nagel and cholecystectomy was performed. He was returned to the [facility] or, but became more agitated and confused during the day, consistent with alcohol withdrawal. He was also hypertensive. In the intensive care unit, he has remained confused. He has pulled out his IVs. CIWA score is curr ently estimated at 10. PAST MEDICAL HISTORY: Remarkable for systemic hypertension, hyperlipidemia, peripheral neuropathy, a nd type 2 diabetes MEDICATIONS ON ADMISSION: Metformin, Bystolic, Januvia, oxycodone, simvastatin, gabapentin, Invokana , and aspirin. DRUG ALLERGIES: No known drug allergies. SOCIAL HISTORY: The patient is apparently disabled. He does drink alcohol regularly, the amount is difficult for him to quantitate. He denies smoking. FAMILY HISTORY: Noncontributory. REVIEW OF SYSTEMS: A 10-point review of systems is negative, except as mentioned in the HPI. There is no history of known heart disease. There is no history of thromboembolic disease. He denies lung disease. Intubation for his cholecystectomy was difficult with some trauma. Postoperatively he is bringing up some blood from his posterior oropharynx. PHYSICAL EXAMINATION: GENERAL: A gentleman who is confused. He is oriented to person, thinks it is June 08, but knows that it is almost [place]. He is confused about where he is, eventually c oming up with [facility]. VITAL SIGNS: Blood pressure is 138/101, heart rate 105 with sinus tachycardia on the monitor, respiratory rate is 20. He is afebrile. Oxygen is in place at 4 L. HE ENT: Unremarkable for lymphadenopathy or thyromegaly. There is no jugular venous distention. CHEST : Clear anteriorly. Breath sounds are diminished at the bases. HEART: Regular rate and rhythm wit hout significant murmur or gallop. ABDOMEN: Postoperative. Bowel sounds are present. There is mil d to moderate distention. No Metz catheter is in place. EXTREMITIES: Unremarkable for edema, cord s, or tenderness. NEUROLOGIC: Examination is nonfocal. He moves all extremities equally, reports s ensation. Confusion is as noted above. DATABASE: White blood cell count is 15,000, hematocrit 48, platelets 115,000. Sodium is 136, potass ium 4.1, BUN 14 with a creatinine of 0.7, glucose is approximately 200. Total bilirubin is 4.8. Arielle er function studies are otherwise normal. Albumin is 4.4, lipase 96. ASSESSMENT: 1. Acute cholecystitis. Status post cholecystectomy. He is stable postoperatively from a surgical standpoint. 2. Alcohol withdrawal. He does drink alcohol on a daily basis and has for some time. He does have evidence of moderate alcohol withdrawal. He is on the CIWA protocol. He remains confused, has pulle d out IVs, etc., Ativan is being given. Thiamine will be ordered. 3. Hypertension. He is hypertensive postoperatively. He is currently n.p.o. His hypertension is i n part secondary to his underlying essential disease, as well as current alcohol withdrawal, and poss ible pain in the postop state. He will be given intravenous metoprolol 5 mg q.6 and p.r.n. enalapril . 4. History of type 2 diabetes. Blood sugars are somewhat elevated postoperatively. He is on slidin g scale coverage. 5. Gastrointestinal prophylaxis: On famotidine. 6. Deep venous thrombosis prophylaxis: Nothing currently secondary to surgery. Start prophylactic enoxaparin tomorrow. PLANS AND RECOMMENDATIONS: Please see the problem-specific recommendations as noted above. This inc ludes treatment for hypertension, continuing CIWA, adding thiamine, following laboratory. Further plans and recommendations will be made based on his progress over the next 12-24 hours. /[id number]/MODL
[2017-05-12] MEDS: METOPROLOL TARTRATE 5 MG/5 ML INJ IVP SCH ×2 (00:27→05:59)
[2017-05-12] MEDS: DEXMEDETOMIDINE IN 0.9 % NACL 100 ML IV SCH (03:30)
--- NOTE | 2017-05-12 04:27 | GOP ---
[f rep st] OPERATIVE REPORT DATE OF OPERATION: 05/11/2017 SURGEON: Ernesto Nagel MD CONTRACTOR FIELD HAULING: There was no therapeutic recreation assistant. ANESTHESIOLOGIST: Nick Stack MD. PREOPERATIVE DIAGNOSIS: Acute cholecystitis. POSTOPERATIVE DIAGNOSIS: 1. Acute cholecystitis. 2. Mild cirrhosis. PROCEDURE PERFORMED: Lap orion and wedge liver biopsy. FINDINGS: The patient was found with a completely infarcted gallbladder with multiple small stones, was completely obscured by omental adhesions and markedly distended. Also, seen to have mild cirrhos is and a fatty liver edge. DESCRIPTION OF PROCEDURE: The patient was taken to the operating room where he received satisfactory general endotracheal anesthesia by Dr. Stack. He was placed in the supine position prepped and jr ped in the usual sterile fashion. A periumbilical incision was made. A Veress needle inserted. Pne umoperitoneum was established. Trocar was introduced. Laparoscope introduced. Good visualization w as obtained. Three other trocars were placed in the upper abdomen under direct vision. Gallbladder was completely obscured. That was freed up by dissecting the omentum off the gallbladder exposing a completely black infarcted gallbladder. This was elevated up as best could. Cystic triangle was car efully dissected free. Adhesions were removed. The cystic triangle dissection was quite difficult a nd markedly inflamed. The gallbladder was then taken down in a retrograde manner from the fundus, do wn to the hilum, and then the cystic triangle was carefully dissected free. The artery and duct were isolated. A good clear view was obtained. The common duct could be identified medially as well as the hepatic artery. The cystic artery was multiply hemoclipped and divided. The inflammation around the cystic duct was quite thick. It was divided with an Endo-ALYSON stapler. The gallbladder was then freed and placed in a specimen bag, and extracted through the upper midline port site. The wound wa s copiously irrigated. Hemostasis was assured. A wedge biopsy was taken of the right lobe of the li lisa and sent out to pathology. Hemostasis there was obtained with electrocautery. Again, the wound was copiously irrigated and a 15 round silicone STEPHEN drain was placed in Morison pouch and brought out through one of the trocar sites. The remaining trocar sites were closed with 0 Vicryl for the fascia , 4-0 Monocryl subcuticular stitch for the skin. All wounds were infiltrated with 0.5% Marcaine. He tolerated the procedure quite well. There were no complications. He was taken to the recovery room in satisfactory condition. /[id number]/MODL
[2017-05-12 05:05] LABS: ADD DIFF? NO; ADD MORPH? NO; ADD SCAN? NO; ATYPICAL LYMPHOCYTE FLAG 0 (0-99); FRAGMENT RBC FLAG 0 (0-99); HEMATOCRIT 39.3 % (40.0-51.0); HEMOGLOBIN 13.7 g/dL (13.7-17.5); LEFT SHIFT FLG 0 (0-99); LIPEMIA HEMOLYSIS FLAG 90 (0-99); MEAN CELL HEMOGLOBIN 34.8 pg (27.9-34.1); MEAN CELL HEMOGLOBIN CONCENTR. 34.9 g/dL (32.4-36.7); MEAN CELL VOLUME 99.7 fL (81.5-99.8); MEAN PLATELET VOLUME 10.2 fL (8.7-11.7); PLATELET CLUMPS FLAG 0 (0-99); PLATELET COUNT 95 10^3/uL (150-400); RED BLOOD CELL COUNT 3.94 10^6/uL (4.40-6.38); RED CELL DISTRIBUTION WIDTH 12.3 % (11.5-15.2)
[2017-05-12 05:15] LABS: INR 1.28 (0.83-1.16); PROTIME(PATIENT) 16.2 SEC (12.0-15.0)
[2017-05-12 05:21] LABS: ALANINE AMINOTRANSFERASE 49 IU/L (21-72); ALBUMIN 2.9 g/dL (3.5-5.0); ALKALINE PHOSPHATASE 57 IU/L (38-126); AMYLASE < 30 IU/L (30-110); ANION GAP 12 mEq/L (8-16); ASPARTATE AMINOTRANSFERASE 59 IU/L (17-59); BILIRUBIN,TOTAL 2.6 mg/dL (0.1-1.4); BILIRUBIN-CONJUGATED 0.8 mg/dL (0.0-0.5); BILIRUBIN-UNCONJUGATED 1.8 mg/dL (0.0-1.1); CALCIUM 8.2 mg/dL (8.5-10.4); CARBON DIOXIDE 24 mEq/l (22-31); CHLORIDE 103 mEq/L (97-110); CREATININE 0.5 mg/dL (0.7-1.3); GLOMERULAR FILTRATION RATE > 60; GLUCOSE 183 mg/dL (70-100); POTASSIUM 4.4 mEq/L (3.5-5.2); SODIUM 139 mEq/L (134-144); TOTAL PROTEIN 5.3 g/dL (6.3-8.2)
--- NOTE | 2017-05-12 07:48 | SOAPPROG ---
SOAP Progress Note Assessment/Plan: Assessment: 52 male diabetic with ruq pain < 12 hrs us shows acute orion with small stones bili unconjugated elevated tender ruq/ nonicteric/ afebrile risks and options fully discussed Plan:lap orion/ IM consult for diabetes management 05/11/17 08:45 05/11/17 20:15 POSTOP AFEBRILE BUT SOMEWHAT AGITATED AND MILD TACHYCARDIA/QUESTIONABLE ETOH WITHDRAWAL/SEROUS STEPHEN DRAINAGE/WOUND OKAY 05/12/17 07:47 afebrile/ lfts improved/ vs stable Objective: Vital Signs Temp Pulse Resp BP Pulse Ox 37.0 C 72 20 132/85 H 96 05/12/17 04:00 05/12/17 05:59 05/12/17 04:00 05/12/17 05:59 05/12/17 04:00 Laboratory Results 05/12/17 04:45 05/12/17 04:45 05/11/17 05/12/17 05/13/17 05:59 05:59 05:59 Intake Total 4548 Output Total 415 600 Balance 4133 -600 PT 16.2 SEC (12.0-15.0) H 05/12/17 04:55 INR 1.28 (0.83-1.16) H 05/12/17 04:55 ICD10 Worksheet Patient Problems: Problems Problem Status Onset Cholecystitis Acute Acute renal failure Acute Dizziness Acute
[2017-05-12] MEDS: INSULIN LISPRO 100 UNIT/ML SC SCH ×3 (08:28→18:38)
[2017-05-12] MEDS: NEBIVOLOL HCL 5 MG TAB PO SCH (08:29)
[2017-05-12] MEDS: GABAPENTIN 300 MG CAP PO SCH ×2 (08:29→20:15)
[2017-05-12] MEDS: THIAMINE HCL 100 MG in NS 100 ML IV SCH (08:31)
[2017-05-12] MEDS: ERTAPENEM 1 GM VIAL IVP SCH (08:32)
--- NOTE | 2017-05-12 09:22 | ASMTCMCOM ---
CM Note CM Note Notes: 52 year old male admitted for acute cholecystitis. He has a hx of DM, HTN, HLD, Neuropathy. No discharge needs anticipated. Date Signed: 05/12/2017 09:22 AM Electronically Signed By:Sonia Leonard LCSW
--- NOTE | 2017-05-12 09:24 | HOSPPROG ---
Hospitalist Progress Note Assessment/Plan: 52 yo M w dm here w acute cholecystitis, possible acute alcohol withdrawal cholecystitis: s/p cholecystectomy necrotic GB noted continue ertapenem alcohol withdrawal: tachycardic and hypertensive overnight, with confusion all improved this AM wean precedex dc metoprolol transfer to floor sepsis: improved continue ertapenem dm: well controlled continue lispro proph: start LMWH dispo: inpt Subjective: case d/w dr kumar. more alert. afebrile Objective: Vital Signs Temp Pulse Resp BP Pulse Ox 36.1 C 71 20 115/83 H 94 05/12/17 07:55 05/12/17 08:29 05/12/17 07:55 05/12/17 08:29 05/12/17 07:55 Microbiology 05/11/17 12:36 Gram Stain - Final Gallbladder - Eswab Laboratory Results 05/12/17 04:45 05/12/17 04:45 05/11/17 05/12/17 05/13/17 05:59 05:59 05:59 Intake Total 4548 Output Total 415 600 Balance 4133 -600 PT 16.2 SEC (12.0-15.0) H 05/12/17 04:55 INR 1.28 (0.83-1.16) H 05/12/17 04:55 - Physical Exam Constitutional: no apparent distress, appears nourished Eyes: PERRL, anicteric sclera Ears, Nose, Mouth, Throat: moist mucous membranes, hearing normal Cardiovascular: regular rate and rhythym, no murmur, rub, or gallop Respiratory: no respiratory distress, no rales or rhonchi Gastrointestinal: other (distended. hypoactive bowel sounds. no rebound), No normoactive bowel sounds Genitourinary: no bladder fullness, No hampton in urethra Skin: warm, normal color Musculoskeletal: full muscle strength Neurologic: AAOx3, other (more alert) Psychiatric: interacting appropriately, not anxious Lymph, Heme, Immunologic: no cervical LAD ICD10 Worksheet Patient Problems: Problems Problem Status Onset Cholecystitis Acute Acute renal failure Acute Dizziness Acute
[2017-05-12] MEDS: LORazepam 0.5 MG TAB PO PRN ×2 (10:13→14:11)
[2017-05-12] MEDS: oxyCODONE IR 5 MG TAB PO PRN ×3 (10:44→18:11)
--- NOTE | 2017-05-12 13:14 | PDMN ---
Medical Necessity Medical necessity: Lucinda Nicholas, RN: est. > 2 MN LOS for eval and TX of acute cholecystitis and probable cholelithiasis, acute and persistent RUQ pain, requiring planned urgent laparoscopic cholecystectomy, Hospitalist consult to manage diabetes, ongoing NPO, IV fluids, IV Ertapenem, comorbid diabetes per H/p , progress note.
[2017-05-12] MEDS: LORazepam 2 MG/ML INJ IVP PRN (22:37)
[2017-05-13 07:32] VITALS: PULSE 99; RESP 16; TEMP 97.9; O2SAT 93
[2017-05-13] MEDS: INSULIN LISPRO 100 UNIT/ML SC SCH (08:03)
[2017-05-13] MEDS ORDERED: THIAMINE HCL 100 MG TAB PO SCH (09:00)
[2017-05-13] MEDS: GABAPENTIN 300 MG CAP PO SCH (09:54)
[2017-05-13] MEDS: ERTAPENEM 1 GM VIAL IVP SCH (09:54)
[2017-05-13] MEDS: NEBIVOLOL HCL 5 MG TAB PO SCH (09:54)
[2017-05-13] MEDS: oxyCODONE IR 5 MG TAB PO PRN (09:55)
--- NOTE | 2017-05-13 10:58 | PDIAF ---
- Diagnosis Diagnosis: cholecystitis Code Status: Full Code - Medication Management Discharge Medications: Medications to Continue on Transfer Gabapentin [Neurontin 300 MG (*)] 900 mg PO BID 04/10/16 [Last Taken 05/09/17] Nebivolol HCl [Bystolic 5 mg (*)] 5 mg PO DAILY 04/10/16 [Last Taken 05/09/17] Aspirin EC [Aspirin EC 81 mg (*)] 81 mg PO DAILY 05/11/17 [Last Taken 05/09/17] Canagliflozin [Invokana] 100 mg PO DAILY 05/11/17 [Last Taken 05/09/17] Herbals/Supplements -Info Only 1 ea PO DAILY 05/11/17 [Last Taken 05/09/17] Magnesium Oxide [Magnesium Oxide 400 mg (*)] 400 mg PO BID 05/11/17 [Last Taken 05/09/17] Simvastatin 40 mg PO HS 05/11/17 [Last Taken 05/09/17] metFORMIN SR [Glucophage XR 500 mg (*)] 500 mg PO BID 05/11/17 [Last Taken 05/09] sitaGLIPtin PHOSPHATE [Januvia 100 MG (*)] 100 mg PO DAILY 05/11/17 [Last Taken 05/09/17] levOFLOXACIN [Levofloxacin] 750 mg PO DAILY #8 tablet 05/13/17 [Last Taken Unknown] oxyCODONE/APAP 5/325 [Percocet 5/325 (*)] 1 tab PO Q4-6PRN PRN #30 tab 05/13/17 [Last Taken Unknown] Discharge Medications: Refer to the Discharge Home Medication list for PRN reason. - Orders Services needed: Home Care, Registered Nurse, Physical Therapy, Occupational Therapy Home Care Face to Face: I certify that this patient was under my care and that I had the required [id number] encounter meeting the encounter requirements on the discharge day. My findings support the fact that the patient is homebound as defined in Home Care Face to Face Continued: CMS Chapter 7 Medicare Benefits Manual 30.1.1 , The condition of the patient is such that there exists a normal inability to leave home and consequently, leaving home would require a considerable and taxing effort. Isolation Type: None Diet Recommendation: no restrictions on diet Diet Texture: Regular Texture Diet - Follow Up Care Current Providers and Referrals: Kiana Cannon MD [Primary Care Provider] - As per Instructions Ernesto Nagel MD [Medical Doctor] -
--- NOTE | 2017-05-13 11:01 | SOAPPROG ---
SOAP Progress Note Assessment/Plan: Assessment/Plan: 52 Y M s/p lap orion, POD#2, for necrotic acute cholecystitis. Bili trending down. D/c drain. Could d/c to home from surgical perspective. Would recommend PO abx for 5 days. Consider augmentin or levaquin. Discussed limitations. Will add to d/c plan. S: pain controlled. eating no n/v. O: alert, nad no appreciable jaundice no wob abd soft, wounds intact, drain serosanguinous 05/13/17 10:58 Objective: Vital Signs Temp Pulse Resp BP Pulse Ox 36.6 C 99 16 125/104 H 93 05/13/17 07:24 05/13/17 07:24 05/13/17 07:24 05/13/17 07:24 05/13/17 07:24 Microbiology 05/11/17 12:36 Gram Stain - Final Gallbladder - Eswab Laboratory Results 05/12/17 04:45 05/12/17 04:45 05/12/17 05/13/17 05/14/17 05:59 05:59 05:59 Intake Total 4548 250 Output Total 415 860 Balance 4133 -610 PT 16.2 SEC (12.0-15.0) H 05/12/17 04:55 INR 1.28 (0.83-1.16) H 05/12/17 04:55 ICD10 Worksheet Patient Problems: Problems Problem Status Onset Cholecystitis Acute Acute renal failure Acute Dizziness Acute
[2017-05-13 11:17] VITALS: BP 137/95
--- NOTE | 2017-05-13 15:12 | ASDISCHSUM ---
Discharge Information Plan Status:Home with No Needs Medically Cleared to Leave:05/12/2017 Discharge Date:05/13/2017 12:41 PM CM D/C Disposition: ADT D/C Disposition:Home Health Service Projected Discharge Date:05/13/2017 12:00 AM Transportation at D/C: Discharge Delay Reason: Follow-Up Date:05/13/2017 12:00 AM Discharge Slot: Final Diagnosis: Placement Information Patient Contact Information Contact Name:MAIA Relationship: Address: City: [facility] Phone: State/Zip Code:[place] Email: Financial Information Financial Class: Primary Plan Desc:MEDICARE INPATIENT Primary Plan Number:[id number] Secondary Plan Desc: Secondary Plan Number: Assessment Information H CM Progress Note CM Note CM Note Notes: 52 year old male admitted for acute cholecystitis. He has a hx of DM, HTN, HLD, Neuropathy. No discharge needs anticipated. Date Signed: 05/12/2017 09:22 AM Electronically Signed By:Sonia Leonard LCSW Intervention Information Intervention Type:*IM-Signed Date of Service:05/13/2017 12:27 PM Patient Type:Inpatient Staff Member:Zina Abrams Hours: Discipline: Severity: Comment:
--- NOTE | 2017-05-13 20:08 | GDS ---
[f rep st] DISCHARGE SUMMARY DISCHARGE DIAGNOSES: 1. Acute cholecystitis status post cholecystectomy. 2. Acute alcohol withdrawal. 3. Sepsis secondary to cholecystitis, resolved. 4. Diabetes. 5. Chronic neuropathy. 6. Hypertension. 7. Hyperlipidemia. HISTORY OF PRESENT ILLNESS: A 52-year-old male with a history of well-controlled diabetes and neurop athy who presents with right upper quadrant pain. For details of the patient's presentation, please see the history and physical dated 05/11/2017. Consultative services include general surgery, Dr. Linda cole. PROCEDURES: On 05/11/2017, patient underwent cholecystectomy. HOSPITAL COURSE BY ISSUE: 1. Cholecystitis. The patient underwent immediate cholecystectomy with good postsurgical response. The patient was kept on IV antibiotics and is being transitioned to oral levofloxacin post dispositi on. The patient will follow in the outpatient clinic with Dr. Nagel in 1 week's time for his first p ost discharge followup. The patient was tolerating normal diet on the day of disposition. We are ar ranging for home health to evaluate the patient in the outpatient setting before his first postop michelle ointment item. 2. Diabetes. Patient was continued on his home medications without alteration. MEDICATIONS AT THE TIME OF DISPOSITION: Please reference the med rec printed on 05/13/2017. PENDING STUDIES: At the time of this dictation include gallbladder swabs which are preliminary no gr owth to date. FOLLOWUP APPOINTMENTS: Dr. Nagel in 1 week's time. TIME SPENT: I spent greater than 30 minutes in the planning and coordination of this discharge. /[id number]/MODL
--- NOTE | 2017-05-20 14:49 | GCON ---
[f rep st] CONSULTATION DATE OF CONSULTATION: 05/11/2017 HISTORY OF PRESENT ILLNESS: The patient is a 52-year-old male who was admitted with right upper quad rant pain. He is diabetic with neuropathy. Describes the pain is being less than 12 hours in duratio n and going into his back, associated with some nausea, possible fever but no rigors. He has had EGD which is negative. Ultrasound reveals a thickened gallbladder with stones, normal ducts. LFTs are slightly abnormal but not dramatic. His white count was elevated. He is quite tender in the right u pper quadrant. PAST MEDICAL HISTORY: Includes diabetes, peripheral neuropathy, hypertension, hyperlipidemia. PAST SURGICAL HISTORY: He has had no previous surgeries. ALLERGIES: None. MEDICATIONS: Include aspirin, metformin, Percocet, Zocor, sitagliptin, Neurontin, nebivolol, canagli flozin. REVIEW OF SYSTEMS: Reveals no other major problems on a full 10-point review of systems. Specifical ly, does not smoke. Denies any present cardiac symptoms. FAMILY HISTORY: Noncontributory. PHYSICAL EXAMINATION: GENERAL: An alert, uncomfortable 52-year-old male in no acute distress, he is afebrile. HEAD AND NECK: Was nonicteric without adenopathy or oral lesions. CHEST: Clear and sym metric. COR: Regular rhythm without murmurs. ABDOMEN: Soft. He is very tender in the right upper quadrant with a fullness which probably represents gallbladder distention. There are no inguinal hernias. EX TREMITIES: Benign with full range of motion, full pulses. BACK: Nontender without evidence of CVA tenderness. NEUROLOGIC: Physiologic and symmetric. IMPRESSION: Acute cholecystitis and cholelithiasis. RECOMMENDATIONS: Would be in medical stabilization if there are other issues and then a laparoscopic cholecystectomy as soon as convenient. Risks and options have been fully discussed with the patient who wishes to proceed. /[id number]/MODL
== END 2017-05-13 12:41 | disposition home health service (06) | DRG 854 ==
LOC: F3E 08:48 → F2N 14:58 → F3E 05-12 16:02
PROVIDERS: ADMIT Internal Medicine; ATTEND Internal Medicine
DX: A41.9 Sepsis, unspecified organism (principal); K80.00 Calculus of gallbladder with acute cholecystitis without obstruction; F10.239 Alcohol dependence with withdrawal, unspecified; K70.30 Alcoholic cirrhosis of liver without ascites; K82.8 Other specified diseases of gallbladder; R06.6 Hiccough; E11.40 Type 2 diabetes mellitus with diabetic neuropathy, unspecified; R42 Dizziness and giddiness; G89.21 Chronic pain due to trauma; M54.9 Dorsalgia, unspecified; I10 Essential (primary) hypertension; E78.5 Hyperlipidemia, unspecified
CPT/HCPCS: 96365; 97161-GP; G8978-GP-CI; G8979-GP-CI; G8980-GP-CI; J0330; J1100; J1170; J1335; J1815; J2060; J2405; J2704; J3010; J3411; Q9967

== ENCOUNTER 2017-05-16 18:19 | Inpatient (IN) | payer OTHER ==
[2017-05-16] MEDS ORDERED: FUROSEMIDE 20 MG/2 ML VIAL ONE (18:31)
[2017-05-16] MEDS ORDERED: ONDANSETRON 4 MG/2 ML VIAL IVP ONE (18:51)
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
[2017-05-16 19:36] LABS: PLATELET COUNT 209 10^3/uL (150-400)
[2017-05-16] MEDS ORDERED: MAG HYDROX/AL HYDROX/SIMETH 30 ML UDCUP ONE (19:43)
[2017-05-16] MEDS ORDERED: LIDOCAINE 2% VISCOUS 15 ML UDCUP ONE (19:43)
[2017-05-16] MEDS ORDERED: MAG HYDROX/AL HYDROX/SIMETH 30 ML UDCUP PO ONE (19:44)
[2017-05-16] MEDS ORDERED: LIDOCAINE 2% VISCOUS 15 ML UDCUP PO ONE (19:44)
[2017-05-16] MEDS ORDERED: IOPAMIDOL (ISOVUE-300) 100 ML BTL ONE (20:06)
--- NOTE | 2017-05-16 20:15 | CPEKG ---
Heart Rate: 97 RR Interval: 619 P-R Interval: 148 QRSD Interval: 74 QT Interval: 352 QTC Interval: 447 P Dalton: 67 QRS Dalton: -2 T Wave Dalton: 45 EKG Severity - BORDERLINE ECG - EKG Impression: SINUS RHYTHM EKG Impression: BORDERLINE T ABNORMALITIES, ANTERIOR LEADS Electronically Signed By: Ata Live 16-May-2017 20:17:54
[2017-05-16] MEDS ORDERED: ERTAPENEM 1 GM VIAL IVP ONE (20:37)
[2017-05-16] MEDS ORDERED: ERTAPENEM 1 GM VIAL ONE (21:12)
[2017-05-16] MEDS ORDERED: ONDANSETRON 4 MG/2 ML VIAL IVP PRN (22:18)
[2017-05-16] MEDS ORDERED: ACETAMINOPHEN 325 MG TAB PO PRN (22:18)
[2017-05-16] MEDS ORDERED: ONDANSETRON DISINTEGRATING 4 MG TAB PO PRN (22:18)
[2017-05-16] MEDS ORDERED: PARAMETERS MISC PRN (22:22)
[2017-05-16] MEDS ORDERED: D50W 25 GM/50 ML VIAL IVP PRN (22:22)
[2017-05-16] MEDS ORDERED: PANTOPRAZOLE SODIUM 40 MG VIAL IVP ONE (22:27)
[2017-05-16] MEDS: oxyCODONE IR 5 MG TAB PO PRN (22:49)
--- NOTE | 2017-05-16 23:05 | SOAPPROG ---
SOAP Progress Note Assessment/Plan: Assessment: s/p lap orion by dr kumar. Was doing well after discharge then developed severe reflux. Having green/dark bowel movements. CT scan with hematoma AST/ALT elevated. Bili trending down Ecchymosis by incisions Will follow Repeat LFTs tomorrow. May need MRCP Plan: 05/16/17 23:03 Objective: Vital Signs Temp Pulse Resp BP Pulse Ox 36.7 C 96 20 166/107 H 95 05/16/17 22:00 05/16/17 22:00 05/16/17 22:00 05/16/17 22:00 05/16/17 22:00 ICD10 Worksheet Patient Problems: Problems Problem Status Onset Right upper quadrant pain Acute Transaminitis Acute Acute renal failure Acute Cholecystitis Acute Dizziness Acute
--- NOTE | 2017-05-16 23:21 | PDGENHP ---
History and Physical - Chief Complaint Abdominal pain - History of Present Illness 52 yo M w/ NIDDM and laparoscopic cholecystectomy on Friday for acute cholecystitis presents with abdominal pain. He was discharged from the hospital on Friday with what he describes as only mild post-operative pain. Over the next two days he developed severe acid reflux followed by vomiting. The strain from vomiting led to dehiscence of one of his small surgical wounds. Over the course of the following day epi-gastric and RUQ pain worsened to the point that he came to the ED for evaluation. He denies fevers, chills, or confusion. He describes greenish bowel movements but no blood. History Information - Allergies/Home Medication List Allergies/Adverse Reactions: No Known Allergies Allergy (Verified 05/11/17 05:25) Home Medications: Gabapentin [Neurontin 300 MG (*)] 900 mg PO BID 04/10/16 [Last Taken 05/15/17] Nebivolol HCl [Bystolic 5 mg (*)] 5 mg PO DAILY 04/10/16 [Last Taken 05/15/17] Aspirin EC [Aspirin EC 81 mg (*)] 81 mg PO DAILY 05/11/17 [Last Taken 05/15/17] Canagliflozin [Invokana] 100 mg PO DAILY 05/11/17 [Last Taken 05/15/17] Herbals/Supplements -Info Only 1 ea PO DAILY 05/11/17 [Last Taken 05/15/17] Magnesium Oxide [Magnesium Oxide 400 mg (*)] 400 mg PO BID 05/11/17 [Last Taken 05/15/17] Simvastatin 40 mg PO HS 05/11/17 [Last Taken 05/15/17] metFORMIN SR [Glucophage XR 500 mg (*)] 500 mg PO BID 05/11/17 [Last Taken 05/15] sitaGLIPtin PHOSPHATE [Januvia 100 MG (*)] 100 mg PO DAILY 05/11/17 [Last Taken 05/15/17] I have personally reviewed and updated: family history, medical history Past Medical History: HTN. DM. Peripheral neuropathy - Surgical History Additional surgical history: N/A - Family History Additional family history: CAD, prostate cancer, brain cancer, leukemia - Social History Smoking Status: Never smoked Review of Systems Review of Systems: ROS: 10pt was reviewed & negative except for what was stated in HPI & below Physical Exam Physical Exam: Temp Pulse Resp BP Pulse Ox 36.7 C 96 20 166/107 H 95 05/16/17 22:00 05/16/17 22:00 05/16/17 22:00 05/16/17 22:00 05/16/17 22:00 Constitutional: obese, uncomfortable Eyes: PERRL, EOMI Ears, Nose, Mouth, Throat: moist mucous membranes, no oral mucosal ulcers Cardiovascular: regular rate and rhythym, no murmur, rub, or gallop Respiratory: no respiratory distress, clear to auscultation Gastrointestinal: normoactive bowel sounds, tenderness (Diffuse, worst in RUQ, epi-gastric areas) Skin: warm, normal color, other (3 small surgical wounds, one with signs of dehiscence ) Neurologic: AAOx3, CN II-XII Intact Psychiatric: interacting appropriately, not anxious Lab Data & Imaging Review 05/16/17 19:24 05/16/17 19:24 WBC 11.62 10^3/uL (3.80-9.50) H 05/16/17 19:24 RBC 4.66 10^6/uL (4.40-6.38) 05/16/17 19:24 Hgb 16.2 g/dL (13.7-17.5) 05/16/17 19:24 Hct 44.9 % (40.0-51.0) 05/16/17 19:24 MCV 96.4 fL (81.5-99.8) 05/16/17 19:24 MCH 34.8 pg (27.9-34.1) H 05/16/17 19:24 MCHC 36.1 g/dL (32.4-36.7) 05/16/17 19:24 RDW 12.3 % (11.5-15.2) 05/16/17 19:24 Plt Count 209 10^3/uL (150-400) 05/16/17 19:24 MPV 9.7 fL (8.7-11.7) 05/16/17 19:24 Neut % (Auto) Not Reported 05/16/17 19:24 Lymph % (Auto) Not Reported 05/16/17 19:24 Schley % (Auto) Not Reported 05/16/17 19:24 Eos % (Auto) Not Reported 05/16/17 19:24 Baso % (Auto) Not Reported 05/16/17 19:24 Nucleat RBC Rel Count 0.0 % (0.0-0.2) 05/16/17 19:24 Absolute Neuts (auto) Not Reported 05/16/17 19:24 Absolute Lymphs (auto) Not Reported 05/16/17 19:24 Absolute Monos (auto) Not Reported 05/16/17 19:24 Absolute Eos (auto) Not Reported 05/16/17 19:24 Absolute Basos (auto) Not Reported 05/16/17 19:24 Absolute Nucleated RBC 0.00 10^3/uL (0-0.01) 05/16/17 19:24 Immature Gran % Not Reported 05/16/17 19:24 Seg Neutrophils % 82 % 05/16/17 19:24 Band Neutrophils % 4 % 05/16/17 19:24 Lymphocytes % 8 % 05/16/17 19:24 Monocytes % 6 % 05/16/17 19:24 Immature Gran # Not Reported 05/16/17 19:24 Absolute Seg Neuts 9.53 10^/uL (1.70-6.50) H 05/16/17 19:24 Absolute Band Neuts 0.46 10^3/uL (0.00-0.70) 05/16/17 19:24 Absolute Lymphocytes 0.93 10^3/uL (1.00-3.00) L 05/16/17 19:24 Absolute Monocytes 0.70 10^3/uL (0.30-0.80) 05/16/17 19:24 RBC/WBC/PLT Morphology NORMAL (NORMAL) 05/16/17 19:24 Platelet Estimate ADEQUATE (ADEQ) 05/16/17 19:24 Sodium 137 mEq/L (134-144) 05/16/17 19:24 Potassium 4.0 mEq/L (3.5-5.2) 05/16/17 19:24 Chloride 97 mEq/L (97-110) 05/16/17 19:24 Carbon Dioxide 20 mEq/l (22-31) L 05/16/17 19:24 Anion Gap 20 mEq/L (8-16) H 05/16/17 19:24 BUN 10 mg/dL (7-23) 05/16/17 19:24 Creatinine 0.6 mg/dL (0.7-1.3) L 05/16/17 19:24 Estimated GFR > 60 05/16/17 19:24 Glucose 166 mg/dL (70-100) H 05/16/17 19:24 Calcium 9.5 mg/dL (8.5-10.4) 05/16/17 19:24 Total Bilirubin 1.9 mg/dL (0.1-1.4) H 05/16/17 19:24 Conjugated Bilirubin 0.8 mg/dL (0.0-0.5) H 05/16/17 19:24 Unconjugated Bilirubin 1.1 mg/dL (0.0-1.1) 05/16/17 19:24 AST 116 IU/L (17-59) H 05/16/17 19:24 ALT 110 IU/L (21-72) H 05/16/17 19:24 Alkaline Phosphatase 161 IU/L (38-126) H 05/16/17 19:24 Troponin I < 0.012 ng/mL (0.000-0.034) 05/16/17 19:24 Total Protein 6.6 g/dL (6.3-8.2) 05/16/17 19:24 Albumin 3.8 g/dL (3.5-5.0) 05/16/17 19:24 Lipase 135 IU/L (23-300) 05/16/17 19:24 Imaging Review: CT A/P: Impression: Postcholecystectomy inflammatory changes in the right upper quadrant , with a small amount of hematoma, and subjacent colonic wall thickening due to the inflammation. There is no evidence for biliary obstruction or bile leak at this time. No free fluid in the abdomen and pelvis otherwise. Assessment & Plan Assessment: 52 yo M w/ NIDDM and laparoscopic cholecystectomy on Friday for acute cholecystitis presents with abdominal pain. Plan: 1. Abdominal pain - Suspect this is multifactorial from post-surgical inflammation, likely gastritis, and strain from vomiting in the setting of recent surgery. Difficult to rule out retained stone, bile leak, or mild cholangitis. CT scan shows only inflammation and small hematoma. LFTs show downtrending bilirubin and mild transaminitis. - PPI IV for presumed gastritis, GI cocktail PRN - Ertapenem 1g qD, obtain blood cultures noting possibility of cholangitis - mIVF, pain control, anti-emetics for supportive care - Trend LFTs, consider GI consult and/or MRCP/ERCP if not improving with conservative measures - Surgical service following, appreciate assistance 2. NIDDM - On oral medications only as an outpatient, will manage with SSI while inpatient Diet - NPO @ MN in case he needs intervention Ppx - SCDs Code - Full Dispo - Admit to observation status
[2017-05-16] MEDS: SUCRALFATE/DIPHENHYDR/MAALOX 240 ML BOTTLE PO PRN (23:53)
[2017-05-16] MEDS: HYDROmorphone HCL/NS/PF 0.4 MG/2 ML SYR IVP PRN (23:57)
[2017-05-17] MEDS: D5W 1/2 NS 1,000 ML IV SCH ×3 (02:05→21:21)
[2017-05-17] MEDS: SUCRALFATE/DIPHENHYDR/MAALOX 240 ML BOTTLE PO PRN (03:54)
[2017-05-17] MEDS: HYDROmorphone HCL/NS/PF 0.4 MG/2 ML SYR IVP PRN ×5 (03:59→21:22)
[2017-05-17 04:05] LABS: PLATELET COUNT 203 10^3/uL (150-400)
[2017-05-17] MEDS: PANTOPRAZOLE SODIUM 40 MG VIAL IVP SCH (07:45)
[2017-05-17] MEDS: INSULIN LISPRO 100 UNIT/ML SC SCH ×3 (08:21→17:52)
--- NOTE | 2017-05-17 11:06 | SOAPPROG ---
SAHRA Progress Note Assessment/Plan: Assessment/Plan: 52-year-old male status post lap choly last Friday for necrotic cholecystitis Readmitted last night for abdominal pain. Liver function tests this morning are trending down, patient's exam is about stable. Given the fact that his LFTs are improving and his pain is better to stable I think that we should try to feed him. I have ordered clear liquid diet today, will see how he tolerates this. We will hold off on any additional imaging at this point in time as I feel that the fluid in the liver bed is consistent with how sick his gallbladder was. 05/17/17 11:04 Subjective: Pain is a little better, patient is hungry Objective: Vital Signs Temp Pulse Resp BP Pulse Ox 36.7 C 106 H 16 114/84 H 95 05/17/17 07:32 05/17/17 07:32 05/17/17 07:32 05/17/17 07:32 05/17/17 07:32 Laboratory Results 05/17/17 03:10 05/17/17 03:10 05/16/17 05/17/17 05/18/17 05:59 05:59 05:59 Output Total 150 Balance -150 ICD10 Worksheet Patient Problems: Problems Problem Status Onset Right upper quadrant pain Acute Transaminitis Acute Acute renal failure Acute Cholecystitis Acute Dizziness Acute
[2017-05-17] MEDS: oxyCODONE IR 5 MG TAB PO PRN ×2 (11:39→21:23)
--- NOTE | 2017-05-17 16:41 | ASMTCMCOM ---
CM Note CM Note Notes: Pt admitted with abdominal pain. Here recently for lap orion 2/2 necrotic cholecystitis. PT cleared him. Anticipate d/c with no CM needs but will continue to follow for any change in needs. Date Signed: 05/17/2017 04:41 PM Electronically Signed By:KELSEY Connolly
[2017-05-17] MEDS ORDERED: D50W 25 GM/50 ML SYR IVP PRN (16:42)
--- NOTE | 2017-05-17 16:43 | HOSPPROG ---
Hospitalist Progress Note Assessment/Plan: 52 yo M with hx of DM2 and s/p recent lap orion presenting with abdominal pain # abdominal pain: increased in the post op setting but improved overnight since admission--still requiring IV narcotics to control his pain however. Presumably this is related to post operative inflammation and less likely retained stones given that LFTs are trending down and pain continues to improve. Diet advanced today, will continue to monitor overnight. # elevated lfts: trending down, abd CT showing only post orion inflammatory changes and no suggestion of retained stone # DM: holding oral agents, will continue SSI # dispo: IP status, will need > 48 hours stay for eval/mgmt of above given continued pain requiring IV narcotics Patient new to my care. Old records reviewed and summarized as above. High risk due to IV opiates. Subjective: no significant overnight events, patient notes that his pain has improved somewhat but still requiring IV opiates Objective: Vital Signs Temp Pulse Resp BP Pulse Ox 36.8 C 90 16 129/96 H 95 05/17/17 15:30 05/17/17 15:30 05/17/17 15:30 05/17/17 15:30 05/17/17 15:30 Laboratory Results 05/17/17 03:10 05/17/17 03:10 05/16/17 05/17/17 05/18/17 05:59 05:59 05:59 Output Total 150 Balance -150 awake alert nad anicteric op clear rrr no mrg cta b soft diffuse ttp without rebound or guarding no cce warm dry well perfused ICD10 Worksheet Patient Problems: Problems Problem Status Onset Acute renal failure Acute Dizziness Acute Cholecystitis Acute Transaminitis Acute Right upper quadrant pain Acute
--- NOTE | 2017-05-17 17:12 | PDMN ---
Medical Necessity Medical necessity: C/M review: est. > 2 MN LOS for eval and TX of acute and persistent abdominal pain, elevated LFTs trending down, requiring ongoing IV fluids, IV Invanz, IV narcotics, comorbid S/P recent laparoscopic choplecystectomy, diabetes per 05/17/2017 Hospitalist progress note.
[2017-05-17] MEDS ORDERED: ATORVASTATIN CALCIUM 20 MG TAB PO SCH (21:00)
[2017-05-17] MEDS ORDERED: ERTAPENEM 1 GM VIAL IVP SCH (21:00)
[2017-05-17] MEDS ORDERED: NON-FORMULARY NEW DRUG (Simvastatin [Simvastatin] 40 MG) PO SCH (21:00)
[2017-05-17] MEDS: MAGNESIUM OXIDE 400 MG TAB PO SCH (21:22)
[2017-05-17] MEDS: GABAPENTIN 300 MG CAP PO SCH (21:22)
[2017-05-18] MEDS: HYDROmorphone HCL/NS/PF 0.4 MG/2 ML SYR IVP PRN ×2 (03:06→06:39)
[2017-05-18] MEDS: oxyCODONE IR 5 MG TAB PO PRN ×3 (03:10→12:46)
[2017-05-18 04:12] VITALS: TEMP 98.2
[2017-05-18 05:06] LABS: PLATELET COUNT 179 10^3/uL (150-400)
[2017-05-18 08:03] VITALS: BP 118/99; PULSE 112; RESP 19; O2SAT 93
[2017-05-18] MEDS: MAGNESIUM OXIDE 400 MG TAB PO SCH (08:03)
[2017-05-18] MEDS: GABAPENTIN 300 MG CAP PO SCH (08:03)
[2017-05-18] MEDS: INSULIN LISPRO 100 UNIT/ML SC SCH (08:04)
[2017-05-18] MEDS: OXYCODONE/APAP 5/325 TAB PO PRN ×2 (08:46→12:44)
[2017-05-18] MEDS ORDERED: NEBIVOLOL HCL 5 MG TAB PO SCH (09:00)
[2017-05-18] MEDS ORDERED: ASPIRIN EC 81 MG TAB PO SCH (09:00)
--- NOTE | 2017-05-18 09:28 | SOAPPROG ---
SAHRA Progress Note Assessment/Plan: Assessment/Plan: 52-year-old male status post lap choly last Friday for necrotic cholecystitis Readmitted for abdominal pain. - patient is doing well today, complaining more back pain than abdominal pain. He is tolerating the clear liquids that restarted yesterday. His white blood cell count remains normal and his liver function enzymes are down once again today. Plan will be to advance diet as tolerated recheck in later today but if he looks good and continues to feel well without the need for IV pain medications plan to discharge home. Discussed need to follow up with Dr. Nagel next week for repeat liver function tests and examination. 05/18/17 09:27 Subjective: Feels better, complains of back pain more than anything else Objective: Vital Signs Temp Pulse Resp BP Pulse Ox 36.8 C 112 H 19 118/99 H 93 05/18/17 07:59 05/18/17 07:59 05/18/17 07:59 05/18/17 07:59 05/18/17 07:59 Laboratory Results 05/18/17 04:46 05/18/17 04:46 05/17/17 05/18/17 05/19/17 05:59 05:59 05:59 Intake Total 1220 Output Total 820 Balance 400 ICD10 Worksheet Patient Problems: Problems Problem Status Onset Right upper quadrant pain Acute Transaminitis Acute Acute renal failure Acute Cholecystitis Acute Dizziness Acute
[2017-05-18] MEDS: PANTOPRAZOLE SODIUM 40 MG VIAL IVP SCH (09:56)
--- NOTE | 2017-05-18 10:28 | PDDCSUM ---
Discharge Summary Discharge Summary: Dates of service 05/16-05/18/17 Consultations: general surgery Procedures performed: none Hospital course by problem: 52 yo M with hx of DM2 and s/p recent lap orion presenting with abdominal pain # abdominal pain: increased in the post op setting but improved overnight since admission--LFTs trending down and abdominal exam and imaging reassuring. Surgery feels this is likely all due to post op inflammation particularly given how sick his admission # elevated lfts: trending down, abd CT showing only post orion inflammatory changes and no suggestion of retained stone # DM: holding oral agents, will continue SSI DC home f/u with PCP and general surgery as planned > 35 min spent in dc of patient more than half in coordination of care
--- NOTE | 2017-05-18 14:03 | ASDISCHSUM ---
Discharge Information Plan Status:Home with No Needs Medically Cleared to Leave:05/17/2017 Discharge Date:05/18/2017 01:05 PM CM D/C Disposition:Home, Routine, Self-Care ADT D/C Disposition:Home, Routine, Self-Care Projected Discharge Date:05/18/2017 01:05 PM Transportation at D/C:Family Discharge Delay Reason: Follow-Up Date:05/18/2017 01:05 PM Discharge Slot: Final Diagnosis: Placement Information Patient Contact Information Contact Name:MAIA Relationship: Address: City: [facility] Phone: [facility]/Zip Code:[place] Email: Financial Information Financial Class: Primary Plan Desc:MEDICARE OUTPATIENT Primary Plan Number:[id number] Secondary Plan Desc: Secondary Plan Number: Assessment Information [facility] CM Progress Note CM Note CM Note Notes: Pt admitted with abdominal pain. Here recently for lap orion 2/2 necrotic cholecystitis. PT cleared him. Anticipate d/c with no CM needs but will continue to follow for any change in needs. Date Signed: 05/17/2017 04:41 PM Electronically Signed By:KELSEY Connolly Intervention Information Intervention Type:*Occurence 72 Date of Service:05/16/2017 08:56 PM Patient Type:Inpatient Staff Member:ANA Nicholas, Lucinda Hours:0.25 Discipline: Severity:1 (0-1 Hours) Comment:[facility] 72 for 05/16/2017 20:56 to 017 16:37 as patient discharged 05/18/2017 (< 2 MN LOS after patient admission status changed from observation to inpatient) .
[2017-05-19] MEDS ORDERED: PANTOPRAZOLE SODIUM 40 MG TAB PO SCH (09:00)
== END 2017-05-18 13:05 | disposition home or self-care (01) | DRG 948 ==
LOC: F1N 21:53 → OBSVTOIN 05-17 16:37
PROVIDERS: ADMIT Internal Medicine; ATTEND Internal Medicine
DX: G89.18 Other acute postprocedural pain (principal); R10.11 Right upper quadrant pain; K21.9 Gastro-esophageal reflux disease without esophagitis; R74.8 Abnormal levels of other serum enzymes; E11.9 Type 2 diabetes mellitus without complications
CPT/HCPCS: 96374; G0378; J0696; J1170; J1335; J1940; J2405; Q9967